=== PATIENT | male | born 1955 | race Caucasian/White ===

== ENCOUNTER → 2020-10-10 13:22 | Outpatient (BNVA) | payer MEDICARE, SELFPAY | PROVIDERS: PCP Internal Medicine; Visit Provider Urology | DX: N52.9 Male erectile dysfunction, unspecified (principal) | CPT/HCPCS: 99212; Q3014 ==

== ENCOUNTER 2020-11-20 17:47 | Emergency (ER) | payer MEDICARE, SELFPAY ==
--- NOTE | ~2020-11-20 | CT_ITS ---
EXAMINATION: CT HEAD WITHOUT CONTRAST CT CERVICAL SPINE WITHOUT CONTRAST CLINICAL INFORMATION: Fall COMPARISON: MRI 03/23/2018 TECHNIQUE: A noncontrast CT of the head and a noncontrast CT of the cervical spine with sagittal and coronal reformats. This CT examination was performed using dose optimization techniques as appropriate, variously including the following: *Automated exposure control *Adjustment of mA and/or kV according to patient size (this includes techniques or standardized protocols for targeted exams where dose is matched to indication/reason for exam; i.e. extremities or head) *Use of iterative reconstruction technique DLP: 1441 FINDINGS: No intra-axial or extra-axial hemorrhage. No acute territorial infarct. Ventricles and sulci appear normal. Preservation of mott-white matter differentiation. No mass, mass effect, or midline shift. No fracture. The mastoid air cells and visualized paranasal sinuses are clear. Normal alignment of the cervical spine. No fracture. No prevertebral soft tissue swelling. 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 Mild to moderate degenerative disc disease at C4-C5 and C5-C6. Associated uncovertebral hypertrophy narrows the neural foramen bilaterally. CT/CT head/brain wo con IMPRESSION: No acute intracranial abnormality. No cervical spine fracture or traumatic subluxation.
--- NOTE | ~2020-11-20 | CT_ITS ---
EXAMINATION: CT HEAD WITHOUT CONTRAST CT CERVICAL SPINE WITHOUT CONTRAST CLINICAL INFORMATION: Fall COMPARISON: MRI 03/23/2018 TECHNIQUE: A noncontrast CT of the head and a noncontrast CT of the cervical spine with sagittal and coronal reformats. This CT examination was performed using dose optimization techniques as appropriate, variously including the following: *Automated exposure control *Adjustment of mA and/or kV according to patient size (this includes techniques or standardized protocols for targeted exams where dose is matched to indication/reason for exam; i.e. extremities or head) *Use of iterative reconstruction technique DLP: 1441 FINDINGS: No intra-axial or extra-axial hemorrhage. No acute territorial infarct. Ventricles and sulci appear normal. Preservation of mott-white matter differentiation. No mass, mass effect, or midline shift. No fracture. The mastoid air cells and visualized paranasal sinuses are clear. Normal alignment of the cervical spine. No fracture. No prevertebral soft tissue swelling. 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 Mild to moderate degenerative disc disease at C4-C5 and C5-C6. Associated uncovertebral hypertrophy narrows the neural foramen bilaterally. CT/CT cervical spine wo con IMPRESSION: No acute intracranial abnormality. No cervical spine fracture or traumatic subluxation.
--- NOTE | ~2020-11-20 | CT_ITS ---
EXAMINATION: CT PELVIS WITHOUT CONTRAST CLINICAL INFORMATION: Question of hip fracture COMPARISON: None TECHNIQUE: Helical scanning was performed with submillimeter collimation through the pelvis. Sagittal and coronal multiplanar 2-D reconstructions were obtained. This CT examination was performed using dose optimization techniques as appropriate, variously including the following: *Automated exposure control *Adjustment of mA and/or kV according to patient size (this includes techniques or standardized protocols for targeted exams where dose is matched to indication/reason for exam; i.e. extremities or head) *Use of iterative reconstruction technique DLP: 1141 mGy-cm FINDINGS: PELVIS: Calcific atherosclerotic changes present in the iliac vessels. An abnormal pelvic mass or ascites is not seen. Prostate and seminal vesicles are unremarkable. The visualized bowel appears normal. No retroperitoneal lymphadenopathy is seen. There are small inguinal hernia seen containing only fat. OSSEOUS STRUCTURES: The bony pelvis and hips appear normal without fracture. Degenerative changes are present at L5-S1 with vacuum phenomena. No bony destructive lesions are seen. CT/CT pelvis wo con IMPRESSION: No hip fractures are seen.
[2020-11-20 18:27] VITALS: BP 173/89; PULSE 78; RESP 18; TEMP 36.6; O2SAT 98; BMI 26.6
--- NOTE | 2020-11-20 18:56 | ED.WEAKNESS ---
HPI - Weakness General Chief complaint: Weakness Stated complaint: leg weakness Time Seen by Provider: 11/20/20 18:47 History of Present Illness HPI Narrative: Patient is a 65-year-old male with a history of Parkinson's there has been no change in patient's medications. Patient fell on . Hit his head. Patient not on blood thinners. Complaining of generalized malaise. Bilateral lower extremity weakness. No fever no chills. No coughing or congestion or upper respiratory symptoms. No diaphoresis. Patient is from home. Has a neurologist at [facility]. Related Data Home Medications Medication Instructions Recorded Confirmed aspirin 81 mg tablet,delayed 81 mg PO DAILY 10/10/20 release escitalopram oxalate 10 mg tablet 10 mg PO DAILY 10/10/20 mirtazapine 7.5 mg tablet 7.5 mg PO BEDTIME PRN 10/10/20 pramipexole 0.125 mg tablet 0.125 mg PO TID 10/10/20 rotigotine 1 mg/24 hour 1 patch TOPICAL DAILY 10/10/20 transdermal 24 hour patch rotigotine 2 mg/24 hour 1 patch TOPICAL BEDTIME 10/10/20 transdermal 24 hour patch rotigotine 3 mg/24 hour 1 patch TOPICAL DAILY 10/10/20 transdermal 24 hour patch terazosin 5 mg capsule 5 mg PO BEDTIME 10/10/20 Previous Rx's Medication Instructions Recorded sildenafil 100 mg tablet 100 mg PO DAILY PRN 30 Days #30 tab 10/10/20 Allergies Allergy/AdvReac Type Severity Reaction Status Date / Time amoxicillin [AMOXICILLIN] Allergy Intermediate GI UPSET Unverified 05/11/20 16:26 propoxyphene [From DARVON] AdvReac Intermediate GI UPSET Unverified 05/11/20 16:26 Darvon Allergy Unknown Uncoded 04/07/20 00:00 Review of Systems Review of Systems: Constitutional: No Weight loss, No Fever, No Chills, No Night Sweats, No Fatigue, No Malaise ENT/Mouth: No Hearing loss, No Ear Pain, No Nasal Congestion, No Sinus Pain, No Hoarseness, No sore throat, No Rhinorrhea, No Swallowing Difficulty Eyes: No Eye Pain, No Swelling, No Redness, No Foreign Body, No Discharge, No Vision Changes Cardiovascular: No Chest Pain, No SOB, No Dyspnea on Exertion, No Orthopnea, No Edema, No Palpitations Respiratory: No Cough, No Sputum, No Wheezing, No Smoke Exposure, No Dyspnea Gastrointestinal: No Nausea, No Vomiting, No Diarrhea, No Constipation, No abdominal Pain, No Hematochezia, No Melena Genitourinary: no irregular bleeding, No Dysuria, No Urinary Frequency, No Hematuria, No Urinary Incontinence, No Urgency, No Flank Pain, No Urinary Flow Changes, No Hesitancy Musculoskeletal: No joint pain, No Myalgias, No Joint Swelling Skin: No Skin Lesions, No rash Neuro: Positive generalized weakness, No Numbness, No Paresthesias, No Loss of Consciousness, No Dizziness, No Headache Psych: No Anxiety/Panic, No Depression, No SI/HI/AH/VH, No Social Issues, Heme/Lymph: No Bruising, No Bleeding,No Lymphadenopathy Endocrine: No Polyuria, No Polydipsia, No Temperature Intolerance [facility] Past Medical History Attestation statement: The following information was validated with the patient. Social History Social History Advance Directives: No Advance Directives Information Provided: Yes Physical Exam Vital Signs: Vital Signs: Last Vital Signs Temp 98.9 F 11/21/20 00:00 Pulse 64 11/21/20 00:00 Resp 16 11/21/20 00:00 BP 156/100 H 11/21/20 00:00 Pulse Ox 99 11/21/20 00:00 Body Mass Index 26.6 Appearance: Alert. Oriented X3. No acute distress. Eyes: Pupils equal, round and reactive to light. ENT: Pharynx normal. Neck: Normal inspection. Neck supple. No lymph nodes noted. No crepitus CVS: Normal heart rate and rhythm. Pulses normal. Normal S1 and S2 Respiratory: No respiratory distress. Breath sounds normal. No Wheezing. No rales Abdomen: Soft and nontender. No rigidity. No distention. good BS x4 Skin: Skin warm and dry. Normal skin color. Normal skin turgor. Extremities: No lower extremity edema. Moving both lower extremity slowly. Neuro: Oriented X 3. No motor deficit. No sensory deficit. Moving all extermities. No slurred speech MDM - Weakness MDM Narrative Medical decision making narrative: Patient well. No acute distress CT scan of the head was negative for any acute evidence of fracture bleed. CT of the pelvis negative for any evidence of fracture hip. Patient's electrolytes are otherwise unremarkable. Discussed with patient's son. Will take patient home. Will have patient follow up closely with Neurology on an outpatient basis. Ensured compliance with his Parkinson's medication. Patient will stay with his son michael. Currently in stable condition. Medical Records Attestation: I reviewed the patient's medical records. Lab Data Attestation: I reviewed the patient's lab results. Result diagrams: 11/20/20 21:30 11/20/20 21:30 Labs: Lab Results 11/20/20 11/20/20 11/20/20 Range/Units 20:59 21:30 21:30 WBC 5.4 (4.8-10.8) X10*3/uL RBC 4.35 L (4.60-5.80) X10*6/uL Hgb 13.9 L (14.0-18.0) g/dl Hct 40.6 L (42-52) % MCV 93.3 (80-98) fL MCH 32.0 (27.0-33.0) pg MCHC 34.2 (31.0-36.0) g/dl RDW 13.4 (11.0-16.0) % Plt Count 175 (160-400) X10*3/uL MPV 9.6 (9.4-12.4) fL Immature Gran % (Auto) 0.2 (0.0-0.4) % Neut % (Auto) 62.9 (45-73) % Lymph % (Auto) 24.0 (20-40) % [place] % (Auto) 9.7 (2-11) % Eos % (Auto) 2.6 (0-4) % Baso % (Auto) 0.6 (0-2) % Lymph # (Auto) 1.3 (1.2-4.9) X10*3/uL [place] # (Auto) 0.5 (0.1-1.2) X10*3/uL Eos # (Auto) 0.1 (0.0-0.4) X10*3/uL Baso # (Auto) 0.0 (0.0-0.2) X10*3/uL Abs Immat Gran (auto) 0.01 (0.00-0.03) X10*3/uL Absolute Neuts (auto) 3.4 (2.0-8.3) X10*3/uL Absolute Nucleated RBC 0.000 (0.0-0.012) X10*3/uL Nucleated RBC % (auto) 0.0 (0.0-0.2) /100WBC PT 12.5 (10.8-13.0) SEC INR 1.1 (0.9-1.1) Sodium (135-145) mmol/L Potassium (3.3-5.1) mmol/L Chloride (96-108) mmol/L Carbon Dioxide (22-29) mmol/L Anion Gap (12-20) BUN (9-16) mg/dL Creatinine (0.5-1.4) mg/dL Estim Creat Clear Calc Estimated GFR Random Glucose (60-115) mg/dL Calcium (8.4-10.2) mg/dL Total Bilirubin (0.0-1.0) mg/dL Direct Bilirubin (0.0-0.5) mg/dL AST (5-37) U/L ALT (0-40) U/L Alkaline Phosphatase (39-117) U/L Total Protein (6.5-8.0) g/dL Albumin (3.5-5.0) g/dL TSH (0.32-4.0) uIU/mL Urine Color YELLOW Urine Appearance CLEAR Urine pH 7.0 (5.0-8.0) Ur Specific Industry 1.020 (1.005-1.025) Urine Protein NEG (NEG-TRACE) MG/DL Urine Glucose (UA) NEG (NEG) MG/DL Urine Ketones NEG (NEG) MG/DL Urine Blood NEG (NEG) Urine Nitrite NEG (NEG) Ur Leukocyte Esterase NEG (NEG) 11/20/20 Range/Units 21:30 WBC (4.8-10.8) X10*3/uL RBC (4.60-5.80) X10*6/uL Hgb (14.0-18.0) g/dl Hct (42-52) % MCV (80-98) fL MCH (27.0-33.0) pg MCHC (31.0-36.0) g/dl RDW (11.0-16.0) % Plt Count (160-400) X10*3/uL MPV (9.4-12.4) fL Immature Gran % (Auto) (0.0-0.4) % Neut % (Auto) (45-73) % Lymph % (Auto) (20-40) % [place] % (Auto) (2-11) % Eos % (Auto) (0-4) % Baso % (Auto) (0-2) % Lymph # (Auto) (1.2-4.9) X10*3/uL [place] # (Auto) (0.1-1.2) X10*3/uL Eos # (Auto) (0.0-0.4) X10*3/uL Baso # (Auto) (0.0-0.2) X10*3/uL Abs Immat Gran (auto) (0.00-0.03) X10*3/uL Absolute Neuts (auto) (2.0-8.3) X10*3/uL Absolute Nucleated RBC (0.0-0.012) X10*3/uL Nucleated RBC % (auto) (0.0-0.2) /100WBC PT (10.8-13.0) SEC INR (0.9-1.1) Sodium 142 (135-145) mmol/L Potassium 4.0 (3.3-5.1) mmol/L Chloride 109 H (96-108) mmol/L Carbon Dioxide 23 (22-29) mmol/L Anion Gap 14 (12-20) BUN 22 H (9-16) mg/dL Creatinine 0.84 (0.5-1.4) mg/dL Estim Creat Clear Calc 88.1 Estimated GFR > 60 Random Glucose 101 (60-115) mg/dL Calcium 8.3 L (8.4-10.2) mg/dL Total Bilirubin 0.5 (0.0-1.0) mg/dL Direct Bilirubin 0.2 (0.0-0.5) mg/dL AST 19 (5-37) U/L ALT 31 (0-40) U/L Alkaline Phosphatase 62 (39-117) U/L Total Protein 5.8 L (6.5-8.0) g/dL Albumin 3.9 (3.5-5.0) g/dL TSH 1.10 (0.32-4.0) uIU/mL Urine Color Urine Appearance Urine pH (5.0-8.0) Ur Specific Industry (1.005-1.025) Urine Protein (NEG-TRACE) MG/DL Urine Glucose (UA) (NEG) MG/DL Urine Ketones (NEG) MG/DL Urine Blood (NEG) Urine Nitrite (NEG) Ur Leukocyte Esterase (NEG) Discharge Plan Discharge Clinical Impression: Parkinson disease Patient Disposition: Home, Self-Care Instructions: Parkinson Disease (ED) Prescriptions: No Action mirtazapine 7.5 mg tablet 7.5 mg PO BEDTIME PRNRF: 0 Neupro 1 mg/24 hour patch 24 hour 1 patch topical DAILY RF: 0 Neupro 2 mg/24 hour patch 24 hour 1 patch topical BEDTIME RF: 0 escitalopram oxalate 10 mg tablet 10 mg PO DAILY RF: 0 pramipexole 0.125 mg tablet 0.125 mg PO TID RF: 0 aspirin 81 mg tablet,delayed release (DR/EC) 81 mg PO DAILY RF: 0 Neupro 3 mg/24 hour patch 24 hour 1 patch topical DAILY RF: 0 terazosin 5 mg capsule 5 mg PO BEDTIME RF: 0 sildenafil 100 mg tablet 100 mg PO DAILY PRN (Reason: sexual activity) 30 Days Qty: 30 RF: 1 Referrals: Chet Keith MD [Primary Care Provider] - 2 days
[2020-11-20 21:25] LABS: Glucose Urine UA NEG (NEG); Leukocyte Esterase Urine NEG (NEG); Nitrite Urine NEG (NEG); Urine Blood NEG (NEG); Urine Ketones NEG (NEG); Urine Protein NEG (NEG-TRACE)
[2020-11-20 21:27] LABS: Appearance Urine CLEAR; Color Urine YELLOW
--- NOTE | 2020-11-20 21:31 | PC.NURSE ---
20g IV access established in right forearm. labs drawn and sent for analysis. aware of delayed lab draw/results. Pt ambulated with poor shuffling slow gait with this RN. urine specimen previously collected and sent for analysis. Awaiting results. Will continue to monitor.
[2020-11-20 21:34] LABS: MANUAL DIFF FLAG NO
--- NOTE | 2020-11-20 21:34 | PC.NURSE ---
Urine specimen negative.
[2020-11-20 21:38] LABS: Basophils Percent Auto 0.6 % (0-2); Eosinophils Absolute Auto 0.1 X10*3/uL (0.0-0.4); Eosinophils Percent Auto 2.6 % (0-4); Hematocrit 40.6 % (42-52); Hemoglobin 13.9 g/dl (14.0-18.0); Imm Gran Abs Auto 0.01 X10*3/uL (0.00-0.03); Imm Gran Pct Auto 0.2 % (0.0-0.4); Lymphocytes Absolute Auto 1.3 X10*3/uL (1.2-4.9); Mean Corpuscular HGB Conc 34.2 g/dl (31.0-36.0); Mean Corpuscular Volume 93.3 fL (80-98); Mean Platelet Volume 9.6 fL (9.4-12.4); Monocytes Absolute Auto 0.5 X10*3/uL (0.1-1.2); Monocytes Percent Auto 9.7 % (2-11); Neutrophils Absolute Auto 3.4 X10*3/uL (2.0-8.3); Neutrophils Percent Auto 62.9 % (45-73); Platelet Count 175 X10*3/uL (160-400); Red Blood Count 4.35 X10*6/uL (4.60-5.80); Red Cell Distribution Width 13.4 % (11.0-16.0); White Blood Count 5.4 X10*3/uL (4.8-10.8)
[2020-11-20 21:43] LABS: INTERNATIONAL NORM RATIO 1.1 (0.9-1.1); Prothrombin Time 12.5 SEC (10.8-13.0)
[2020-11-20 22:02] LABS: Alanine Aminotransferase 31 U/L (0-40); Albumin Level 3.9 g/dL (3.5-5.0); Alkaline Phosphatase 62 U/L (39-117); Anion Gap 14 (12-20); Aspartate Amino Transferase 19 U/L (5-37); Bilirubin Direct 0.2 mg/dL (0.0-0.5); Bilirubin Total 0.5 mg/dL (0.0-1.0); Blood Urea Nitrogen 22 mg/dL (9-16); Calcium 8.3 mg/dL (8.4-10.2); Carbon Dioxide 23 mmol/L (22-29); Chloride 109 mmol/L (96-108); Creatinine Clr Calc Pharmacy 88.1; Estimated Glomerular Filt Rate > 60; Glucose Random 101 mg/dL (60-115); Sodium 142 mmol/L (135-145); Total Protein 5.8 g/dL (6.5-8.0)
--- NOTE | 2020-11-20 23:05 | PC.NURSE ---
Pt called over this RN, voicing that he is upset and anxious about being in the hospital. Pt demanding to have IV access removed, and demanded that we call his son Jesus ([phone]) and Miguelina ([phone]). Unable to reach either person.
--- NOTE | 2020-11-20 23:09 | PC.NURSE ---
Pt's son Jesus just called and spoke with this RN and over the phone. Jesus aware that patient is requesting to leave against medical advice, but Jesus states but I don't want him to leave the hospital . encouraged that the patient have a follow up appointment with his neurologist after discharge and have someone assisting him at home. Aware that labs and imaging are unremarkable.
[2020-11-21] VITALS: BP 156/100; PULSE 64; RESP 16; TEMP 37.2; O2SAT 99
== END 2020-11-21 00:31 | disposition home or self-care (01) ==
PROVIDERS: Emergency Provider Emergency Medicine Emergency Medical Services; PCP Family Medicine
DX: G20 Parkinson's disease (principal); R53.1 Weakness; R53.81 Other malaise; Z91.81 History of falling; Z79.899 Other long term (current) drug therapy; Z79.82 Long term (current) use of aspirin
CPT/HCPCS: 36415; 70450; 72125; 72192; 80048; 80076; 81003; 84443; 85025; 85610; 99283; 99284

== ENCOUNTER 2021-03-12 04:31 | Day surgery (SDC) | payer MEDICARE, SELFPAY ==
[2021-03-12] VITALS (19 sets, daily range): BP systolic 120–195; BP diastolic 67–99; PULSE 73–103; RESP 12–20; TEMP 36.2–37; O2SAT 91–98; BMI 24.3; BMI 25.9; BMI 25.6
--- NOTE | ~2021-03-12 | XR_ITS ---
EXAMINATION: XR SHOULDER, RIGHT CLINICAL INFORMATION: Post reduction COMPARISON: Earlier same date TECHNIQUE: One view of the right shoulder. XR/XR shoulder RT 1V FINDINGS/IMPRESSION: Persistent anterior dislocation of the humeral head with respect to the glenoid. Acromioclavicular joint unremarkable.
--- NOTE | ~2021-03-12 | FL_ITS ---
EXAMINATION: XR FLUOROSCOPY WITH IMAGES CLINICAL INFORMATION: Right shoulder dislocation. COMPARISON: Right shoulder 03/12/2021. TECHNIQUE: Fluoroscopy performed by Dr. Capo Burch Fluoroscopy time: 0.0 minutes DAP: 0.0158 mGycm2 Images: 1 FINDINGS: Fluoroscopy was provided to the referring physician for reduction of right shoulder dislocation. On the single image obtained, there is normal alignment of the glenohumeral joint post reduction. No fracture seen. FL/FL guidance in OR IMPRESSION: Fluoroscopy was provided to the referring physician during reduction of anteriorly dislocated right shoulder joint. On the single image obtained of the right shoulder, there is normal glenohumeral alignment with no acute fracture seen.
--- NOTE | ~2021-03-12 | XR_ITS ---
EXAMINATION: XR SHOULDER, RIGHT CLINICAL INFORMATION: Fall, pain COMPARISON: None TECHNIQUE: Three views of the right shoulder. FINDINGS: There is anterior dislocation of the humeral head relative to the glenoid fossa. No acute fracture is seen. The acromioclavicular joint is intact. XR/XR shoulder RT min 2V IMPRESSION: Anterior glenohumeral dislocation.
[2021-03-12] MEDS: Ketorolac Tromethamine 15 MG/ML VIAL IVPUSH (06:09)
[2021-03-12] MEDS: LORazepam 2 MG/ML VIAL 0.25 MG IVPUSH (06:10)
--- NOTE | 2021-03-12 06:35 | PC.NURSE ---
Right shoulder anterior dislocation. and this RN at bedside attempting to reset shoulder. Medicated prior to procedure for comfort with Ativan 0.25mg and Toradol 15mg. However, first attempt not successful with traction, will re-attempt to set shoulder after medicating with Morphine 1mg. Pt tolerated procedure well.
[2021-03-12] MEDS: Morphine Sulfate 2 MG/ML CARTRIDGE 1 MG IVPUSH (06:42)
--- NOTE | 2021-03-12 07:35 | PC.NURSE ---
Doctor at bedside for right shoulder reduction
[2021-03-12] MEDS: Etomidate 20 MG/10 ML VIAL 5 MG IVPUSH ×2 (07:39→08:32)
--- NOTE | 2021-03-12 08:34 | ED_ITS ---
HPI - Fall General Chief Complaint: Fall Stated Complaint: fall Time Seen by Provider: 03/12/21 06:01 Source: patient Mode of arrival: EMS History of Present Illness HPI Narrative: 65-year-old male with history Parkinson's presents with [facility] anical fall resulting in falling against the counter and subsequent right upper extremity pain without head strike or loss of consciousness. Related Data Home Medications Medication Instructions Recorded Confirmed aspirin 81 mg tablet,delayed 81 mg PO DAILY 10/10/20 release escitalopram oxalate 10 mg tablet 10 mg PO DAILY 10/10/20 mirtazapine 7.5 mg tablet 7.5 mg PO BEDTIME PRN 10/10/20 pramipexole 0.125 mg tablet 0.125 mg PO TID 10/10/20 rotigotine 1 mg/24 hour 1 patch TOPICAL DAILY 10/10/20 transdermal 24 hour patch rotigotine 2 mg/24 hour 1 patch TOPICAL BEDTIME 10/10/20 transdermal 24 hour patch rotigotine 3 mg/24 hour 1 patch TOPICAL DAILY 10/10/20 transdermal 24 hour patch terazosin 5 mg capsule 5 mg PO BEDTIME 10/10/20 Previous Rx's Medication Instructions Recorded sildenafil 100 mg tablet 100 mg PO DAILY PRN 30 Days #30 tab 10/10/20 Allergies Allergy/AdvReac Type Severity Reaction Status Date / Time amoxicillin [AMOXICILLIN] Allergy Intermediate GI UPSET Verified 03/12/21 05:21 propoxyphene [From DARVON] AdvReac Intermediate GI UPSET Verified 03/12/21 05:21 Darvon Allergy Unknown Gastrointestinal Uncoded 03/12/21 05:21 Upset Review of Systems Review of Systems: Pertinent positives and negatives as stated in HPI 10 point review of systems is otherwise negative. [facility] Past Medical History Source: nursing notes reviewed Medical History Parkinson disease Social History Social History Advance Directives: No Advance Directives Information Provided: No Physical Exam Vital Signs: Vital Signs: Last Vital Signs Pulse 95 03/12/21 08:55 Resp 12 03/12/21 08:55 BP 179/99 H 03/12/21 08:55 Pulse Ox 94 03/12/21 08:24 Body Mass Index 25.9 VITAL SIGNS: Reviewed. GENERAL: Well developed, well nourished, in no acute distress. HEAD: Normocephalic/atraumatic EYES: PERRLA, EOMI OROPHARYNX: no oral lesions noted, posterior pharynx clear NECK: Supple, no adenopathy LUNGS: Normal breath sounds. No adventitious sounds or accessory muscle use. SpO2<94> CARDIOVASCULAR: Regular rate and rhythm without noted murmurs ABDOMEN: Soft, non-tender, non-distended with bowel sounds. RIGHT UPPER EXTREMITY: Capillary refill less than 3 seconds, sensation is intact, palpable ulnar/radial pulse, patient currently in splint but no obvious deformities appreciated. SKIN: Inspection of the skin reveals no rashes NEUROLOGIC: Alert and oriented x 4. Strength and sensation to light touch were grossly intact x 4, tremulous Course Course Course Narrative: 65-year-old male with history and clinical presentation consistent with mechanical fall resulting on review of x-rays anterior dislocated right shoulder. Multiple attempts made to reduce the shoulder to include procedural sedation, but unsuccessful. I discussed the case with orthopedics and they are agreeable for shoulder reduction in the OR. I discussed the case with the patient and informed him of the plan, and he acknowledges understanding. 0950: I called and spoke with the patient's son, Eugene Tinoco, who expresses concerns regarding his father's mobility after the shoulder reduction given his already compromised mobility due to his Parkinson's. He is requesting consideration for short-term rehab. I discussed with the patient and he is agreeable for short-term rehab at this time. Consult for physical therapy and case management were placed. Signed out to Dr Stoll. Reevaluation(s) Reevaluation #1: Patient placed in physician observation because the patient needed more time for shoulder reduction, physical therapy and case management evaluation.. At the time observation was started the patient's vital signs were stable, patient is alert and oriented, neuro: Nonfocal, CV RRR, lungs clear Time: 10:09 Discharge Plan Discharge Clinical Impression: Anterior dislocation of right shoulder, Parkinson's disease Prescriptions: No Action mirtazapine 7.5 mg tablet 7.5 mg PO BEDTIME PRNRF: 0 Neupro 1 mg/24 hour patch 24 hour 1 patch topical DAILY RF: 0 Neupro 2 mg/24 hour patch 24 hour 1 patch topical BEDTIME RF: 0 escitalopram oxalate 10 mg tablet 10 mg PO DAILY RF: 0 pramipexole 0.125 mg tablet 0.125 mg PO TID RF: 0 aspirin 81 mg tablet,delayed release (DR/EC) 81 mg PO DAILY RF: 0 Neupro 3 mg/24 hour patch 24 hour 1 patch topical DAILY RF: 0 terazosin 5 mg capsule 5 mg PO BEDTIME RF: 0 sildenafil 100 mg tablet 100 mg PO DAILY PRN (Reason: sexual activity) 30 Days Qty: 30 RF: 1
--- NOTE | 2021-03-12 08:50 | PC.NURSE ---
Orthopedic PA at bedside talking with patient
--- NOTE | 2021-03-12 09:03 | P.HPOP_ITS ---
History of Present Illness History of Present Illness Date of Service: 03/12/21 Chief complaint: fall Narrative: Sd Tinoco is a 65 year old male presented to the ED this morning after sustaining a fall in his kitchen. He states that due to his Parkinson's disease he has an unsteady gait. He tripped and landed with his right arm onto the kitchen counter top. He felt immediate pain and difficulty moving the right upper extremity. He presented to the ED where x-rays were obtained was found to have an anterior dislocation. The ED attempted to reduce multiple times without success. Orthopedics was then consulted for further evaluation and treatment. Review of Systems Review of Systems: Yes all other systems are reviewed and are negative PMFSH Past Medical History Medical History Parkinson disease Social History Social History Advance Directives: No Advance Directives Information Provided: No Meds Allergies Allergy/AdvReac Type Severity Reaction Status Date / Time amoxicillin [AMOXICILLIN] Allergy Intermediate GI UPSET Verified 03/12/21 05:21 propoxyphene [From DARVON] AdvReac Intermediate GI UPSET Verified 03/12/21 05:21 Darvon Allergy Unknown Gastrointestinal Uncoded 03/12/21 05:21 Upset Home Medications Medication Instructions Recorded Confirmed Last Taken Type aspirin 81 mg tablet,delayed 81 mg PO DAILY 10/10/20 Unknown History release escitalopram oxalate 10 mg tablet 10 mg PO DAILY 10/10/20 Unknown History mirtazapine 7.5 mg tablet 7.5 mg PO BEDTIME PRN 10/10/20 Unknown History pramipexole 0.125 mg tablet 0.125 mg PO TID 10/10/20 Unknown History rotigotine 1 mg/24 hour 1 patch TOPICAL DAILY 10/10/20 Unknown History transdermal 24 hour patch rotigotine 2 mg/24 hour 1 patch TOPICAL BEDTIME 10/10/20 Unknown History transdermal 24 hour patch rotigotine 3 mg/24 hour 1 patch TOPICAL DAILY 10/10/20 Unknown History transdermal 24 hour patch terazosin 5 mg capsule 5 mg PO BEDTIME 10/10/20 Unknown History Physical Exam Vital Signs: Vital Signs: Last Vital Signs Pulse 95 03/12/21 08:55 Resp 12 03/12/21 08:55 BP 179/99 H 03/12/21 08:55 Pulse Ox 94 03/12/21 08:24 Body Mass Index 25.9 Const: General: cooperative and no acute distress Orientation/consciousness: patient oriented x3 HENMT: Head: Yes normal to inspection, Yes normocephalic and Yes atraumatic Eyes: General: appearance normal, both eyes and all related structures Neck: Neck: Yes normal visual inspection and Yes no lymphadenopathy Resp: Effort & Inspection: normal respiratory effort and able to speak in complete sentences Cardio: Rate: regular rate Peripheral pulses: Peripheral pulses 2+ thro ughout GI: Inspection: Yes normal to inspection Palpation (GI): Soft to palpation Skin: General skin exam: no rashes or lesions noted Lesions: no lesions Rashes: no rashes Neuro: General: patient oriented x3 Extrem: Other: Right upper extremity: Unable to actively move his right shoulder. Patient is able to flex and extend the right elbow without difficulties. He is able to demonstrate finger flexion, extension, adduction, abduction, thumbs up, and finger cross without difficulty. Sensation is intact. Radial pulse intact. Psych: Mental Status: mental status grossly normal Results Labs Labs: All other labs normal. Assessment and Plan (1) Anterior dislocation of right shoulder: Status: Acute Mr. Tinoco is a 65-year-old male who presents to the emergency department after sustaining a right shoulder anterior dislocation. Multiple attempts in the ED is for reduction were unsuccessful. I discussed the case with Dr. Henson and explained the extent of the injury to the patient and options available which include a closed reduction under anesthesia. I explained the procedure in detail along with the length of recovery and rehab course. I explained the risk, benefits and alternatives. Risk including, but not limited to nerve/tissue damage to surrounding areas. I answered all their questions and with their understanding they have consented to move forward with a closed reduction of right shoulder dislocation. Quality Stroke Does the patient have a stroke diagnosis?: No VTE Prior VTE?: No VTE Risk Level:: Surgical - low VTE Device Contraindication: Treatment Not Indicated VTE Drug Contraindication: Treatment Not Indicated Procedures Date of Service Date of Service: 03/12/21
--- NOTE | 2021-03-12 09:55 | PC.NURSE ---
Report given to OR nurse.
[2021-03-12 11:13] LABS: MANUAL DIFF FLAG NO
[2021-03-12 11:16] LABS: Basophils Percent Auto 0.1 % (0-2); Hematocrit 40.1 % (42-52); Hemoglobin 13.6 g/dl (14.0-18.0); Imm Gran Abs Auto 0.03 X10*3/uL (0.00-0.03); Imm Gran Pct Auto 0.3 % (0.0-0.4); Lymphocytes Absolute Auto 0.8 X10*3/uL (1.2-4.9); Lymphocytes Percent Auto 8.6 % (20-40); Mean Corpuscular HGB Conc 33.9 g/dl (31.0-36.0); Mean Corpuscular Hemoglobin 31.5 pg (27.0-33.0); Mean Corpuscular Volume 92.8 fL (80-98); Mean Platelet Volume 9.9 fL (9.4-12.4); Monocytes Absolute Auto 0.4 X10*3/uL (0.1-1.2); Monocytes Percent Auto 4.5 % (2-11); Neutrophils Absolute Auto 8.4 X10*3/uL (2.0-8.3); Neutrophils Percent Auto 86.5 % (45-73); Platelet Count 163 X10*3/uL (160-400); Red Blood Count 4.32 X10*6/uL (4.60-5.80); Red Cell Distribution Width 13.4 % (11.0-16.0); White Blood Count 9.7 X10*3/uL (4.8-10.8)
[2021-03-12 11:22] LABS: INTERNATIONAL NORM RATIO 1.2 (0.9-1.1); Prothrombin Time 13.1 SEC (9.9-13.0)
[2021-03-12 11:29] LABS: COVID-19 Test Negative (Negative)
--- NOTE | 2021-03-12 11:40 | PC.NURSE ---
Richy from OR here to transpor pt to the operating room. Pt is alert and in no distress
--- NOTE | 2021-03-12 11:56 | MHC.CM.ED ---
Received notificaiton from Dr Moreno that patient may not be safe to go home d/t dislocated shoulder. Physical therapy eval completed. Short term rehab is recommended. Received notification that patient's son, Eugene had some concerns about patient discharging home. Attempted to reach Eugene via telephone at [phone]. Eugene is currently in patient's room. T/W will be in patient's room to assess for discharge needs.
[2021-03-12 12:00] LABS: Alanine Aminotransferase 22 U/L (0-40); Albumin Level 3.8 g/dL (3.5-5.0); Alkaline Phosphatase 62 U/L (39-117); Anion Gap 10 (12-20); Aspartate Amino Transferase 18 U/L (5-37); Bilirubin Total 0.5 mg/dL (0.0-1.0); Blood Urea Nitrogen 15 mg/dL (9-16); Calcium 8.3 mg/dL (8.4-10.2); Carbon Dioxide 23 mmol/L (22-29); Chloride 109 mmol/L (96-108); Estimated Glomerular Filt Rate > 60; Glucose Random 118 mg/dL (60-115); Sodium 138 mmol/L (135-145); Total Protein 5.7 g/dL (6.5-8.0)
--- NOTE | 2021-03-12 12:08 | HO.ANESPROP2 ---
HPI - Anesthesia Eval Consult details Narrative: shoulder dislocation right PMFSH Active Problems Active Problems: All Active Problems (Updated 03/12/21 @ 10:20 by Jenna Moreno MD) Parkinson's disease (Acute) Anterior dislocation of right shoulder (Acute) BPH w urinary obs/LUTS (Acute) Erectile dysfunction (Acute) Past Medical History Medical History Parkinson disease Social History Social History Patient Tobacco Use Status: Never used Tobacco Use of substances other than those prescribed or required for medical reasons: No Are you DNR?: No Advance Directives: No Advance Directives Information Provided: No Meds Allergies Allergy/AdvReac Type Severity Reaction Status Date / Time amoxicillin [AMOXICILLIN] Allergy Intermediate GI UPSET Verified 03/12/21 05:21 propoxyphene [From DARVON] AdvReac Intermediate GI UPSET Verified 03/12/21 05:21 Darvon Allergy Unknown Gastrointestinal Uncoded 03/12/21 05:21 Upset Home Medications Medication Instructions Recorded Confirmed Last Taken Type aspirin 81 mg tablet,delayed 81 mg PO DAILY 10/10/20 Unknown History release escitalopram oxalate 10 mg tablet 10 mg PO DAILY 10/10/20 Unknown History mirtazapine 7.5 mg tablet 7.5 mg PO BEDTIME PRN 10/10/20 Unknown History pramipexole 0.125 mg tablet 0.125 mg PO TID 10/10/20 Unknown History rotigotine 1 mg/24 hour 1 patch TOPICAL DAILY 10/10/20 Unknown History transdermal 24 hour patch rotigotine 2 mg/24 hour 1 patch TOPICAL BEDTIME 10/10/20 Unknown History transdermal 24 hour patch rotigotine 3 mg/24 hour 1 patch TOPICAL DAILY 10/10/20 Unknown History transdermal 24 hour patch terazosin 5 mg capsule 5 mg PO BEDTIME 10/10/20 Unknown History Exam Exam Date and Time: March 12, 2021 1208 Height,Weight and Vital Signs: Height 5 ft 10 in Weight 81.9 kg Last Vital Signs Temp 98.3 F 03/12/21 11:56 Pulse 95 03/12/21 11:56 Resp 20 03/12/21 11:56 BP 149/82 H 03/12/21 11:56 Pulse Ox 94 03/12/21 11:56 Pertinent Lab Results Pertinent Lab Results: Laboratory Tests 03/12/21 03/12/21 03/12/21 11:03 11:03 11:03 WBC 9.7 RBC 4.32 L Hgb 13.6 L Hct 40.1 L MCV 92.8 MCH 31.5 MCHC 33.9 RDW 13.4 Plt Count 163 MPV 9.9 Immature Gran % (Auto) 0.3 Neut % (Auto) 86.5 H Lymph % (Auto) 8.6 L Henry % (Auto) 4.5 Eos % (Auto) 0.0 Baso % (Auto) 0.1 Lymph # (Auto) 0.8 L Henry # (Auto) 0.4 Eos # (Auto) 0.0 Baso # (Auto) 0.0 Abs Immat Gran (auto) 0.03 Absolute Neuts (auto) 8.4 H Absolute Nucleated RBC 0.000 Nucleated RBC % (auto) 0.0 PT 13.1 H INR 1.2 H Sodium 138 Potassium 4.0 Chloride 109 H Carbon Dioxide 23 Anion Gap 10 L BUN 15 Creatinine 0.85 Estim Creat Clear Calc 87.0 Estimated GFR > 60 Random Glucose 118 H Calcium 8.3 L Total Bilirubin 0.5 AST 18 ALT 22 Alkaline Phosphatase 62 Total Protein 5.7 L Albumin 3.8 COVID-19 (ARCHIE) COVID-19 [employer] Com 03/12/21 11:03 WBC RBC Hgb Hct MCV MCH MCHC RDW Plt Count MPV Immature Gran % (Auto) Neut % (Auto) Lymph % (Auto) Henry % (Auto) Eos % (Auto) Baso % (Auto) Lymph # (Auto) Henry # (Auto) Eos # (Auto) Baso # (Auto) Abs Immat Gran (auto) Absolute Neuts (auto) Absolute Nucleated RBC Nucleated RBC % (auto) PT INR Sodium Potassium Chloride Carbon Dioxide Anion Gap BUN Creatinine Estim Creat Clear Calc Estimated GFR Random Glucose Calcium Total Bilirubin AST ALT Alkaline Phosphatase Total Protein Albumin COVID-19 (ARCHIE) Negative COVID-19 Clin Com See Note Airway Mallampati Class: II TM Dist: >3cm Neck ROM: Full Loose/Missing/Broken Teeth: Yes Heart: rrr+[id number] Lungs: cta b/l Assessment and Plan Assessment Anesthesia Assessment: Anesthesia Plan Discussed, PAT Visit and Chart Reviewed Final Anesthetic Review NPO: Yes ASA Class: III Final Preanesthetic Review: No Changes in Pt Med Stat, Meds/Allgs Chart Reviewed, Consent Obtained/Reviewed and Anes Risks/Benef Reviewed Patient Risk: Intermediate Procedure Risk: Low Assessment/Block/Sedation in SS: Assess/Block/Sedation-SS Anesthetic Plan Anesthetic Plan: MAC: and Agree w/ Assess. and Plan Disposition: Standard PACU
--- NOTE | 2021-03-12 12:27 | MHC.CM.ED ---
Patient is currently in the OR having shoulder reduced. Met with patient's son, Eugene in regards to discharge planning. Patient lives with his girlfriend, is suppsoed to use a cane for mobility and had no services prior to coming to the ER. Patient's girlfriend was recently diagnosed with lung cancer. Patient has a history of Parkinson's and Lewy Body dementia. Patient will be non-compliant with meds and experience increased falls. Physical therapy eval completed. Short term rehab is recommended. Patient has never been to short term rehab. List of facilities provided to Eugene from [facility]. He will decide on 2 facility choices and notify case management. PCP is Dr Keith. Patient has not completed a HCP and will need one for short term rehab. Patient receive the [employer] Covid vaccine in December. Continue to monitor for d/c needs.
--- NOTE | 2021-03-12 12:54 | P.OP_ITS ---
Operative Note Operative Note Date of Service: 03/12/21 Narrative: OPERATIVE PROCEDURE NOTE SURGEON: Dr. Scanlon (Ashley) Instrum CLIENT CARE COORDINATOR: Yudith MUELLER PREOP DIAGNOSIS: Anterior inferior Dislocated right shoulder POSTOP DIAGNOSIS: Same OPERATIVE PROCEDURE: Closed reduction right shoulder CLINICAL NOTE: This gentleman fell and injured his shoulder in his own home. He has a history of Parkinson's. He presented the emergency department where the above diagnosis was made. The fail to be able to reduce the shoulder. Therefore after explaining the risks benefits and alternatives and answering all the questions it was mutually agreed upon to carry out the following procedure OPERATIVE PROCEDURE Under a general anesthetic and on his own stretcher the patient was supine. A time-out was then performed. The patient was identified. Procedure confirmed. Site confirmed. Medical and allergy history is were reviewed. All other items were discussed and agreed upon. Standard technique with counter traction the shoulder was easily reduced in seconds. Fluoroscopy confirmed the reduction. The arm was placed in a sling. We therefore terminated the procedure. Patient was then transferred to the recovery room after anesthetic reversal. He was in good condition. Intraoperatively there were no complications.
--- NOTE | 2021-03-12 13:11 | PC.NURSE ---
SLING TO RUE. + radial pulse. RIGHT HAND FINGERS, W/D/I.
[2021-03-12] MEDS: Acetaminophen 325 MG TABLET 650 MG PO (14:17)
--- NOTE | 2021-03-12 15:19 | MHC.CM.ED ---
Received telephone call from patient's son, Eugene. Facility choices: [facility]) [facility] 2) [facility] [address]. Referrals made via [employer]. Anticipate patient will be admitted under extended stay tonight. Continue to monitor for d/c needs.
[2021-03-13 00:21] VITALS: BP 150/85; PULSE 86; RESP 20; TEMP 36; O2SAT 96
[2021-03-13 04:00] VITALS: BP 144/76; PULSE 84; RESP 20; TEMP 36.1; O2SAT 96
[2021-03-13 07:33] VITALS: BP 122/71; PULSE 78; RESP 17; TEMP 36.4; O2SAT 95
[2021-03-13 08:31] VITALS: BP 122/71; PULSE 78; O2SAT 95
[2021-03-13] MEDS: Escitalopram Oxalate 10 MG TABLET PO (10:03)
[2021-03-13] MEDS: Aspirin Enteric Coated 81 MG TABLET.DR PO (10:03)
--- NOTE | 2021-03-13 11:08 | HO.POSTANES ---
Post Anesthesia Evaluation Post Anesthesia Evaluation Vital Signs: Vital Signs Temp Pulse Resp BP Pulse Ox 03/13/21 08:31 78 122/71 95 03/13/21 07:33 97.5 F 78 17 122/71 95 03/13/21 04:00 96.9 F 84 20 144/76 H 96 03/13/21 00:21 96.8 F 86 20 150/85 H 96 Anesthesia: Monitored Mental Status: Awake Pain Control: Satisfactory Nausea/Vomiting: None Hydration: Adequate Anesthesia-Related Issues: No Anes. Related Issues
[2021-03-13 11:28] VITALS: BP 132/75; PULSE 82; RESP 17; TEMP 36.3; O2SAT 95
--- NOTE | 2021-03-13 12:25 | P.DS_ITS ---
DS: Providers Provider Date of Service: 03/13/21 Primary care physician: Chet Keith MD DS: Diagnosis Discharge Diagnosis (1) Anterior dislocation of right shoulder: Status: Acute DS: Medications Discharge Medications Home Medications: Home Medications Medication Instructions Recorded Confirmed aspirin 81 mg tablet,delayed 81 mg PO DAILY 10/10/20 03/12/21 release escitalopram oxalate 10 mg tablet 10 mg PO DAILY 10/10/20 03/12/21 rotigotine 2 mg/24 hour 1 patch TOPICAL BEDTIME 10/10/20 03/12/21 transdermal 24 hour patch Previous Rx's Medication Instructions Recorded sildenafil 100 mg tablet 100 mg PO DAILY PRN 30 Days #30 tab 10/10/20 DS: Summary Hospital Course Hospital Course: Sd Tinoco is a 65 year old male presented to the ED this morning after sustaining a fall in his kitchen. He states that due to his Parkinson's disease he has an unsteady gait. He tripped and landed with his right arm onto the kitchen counter top. He felt immediate pain and difficulty moving the right upper extremity. He presented to the ED where x-rays were obtained was found to have an anterior dislocation. The ED attempted to reduce multiple times without success. Orthopedics was then consulted for further evaluation and treatment. Mr. Tinoco underweant a successful Closed reduction of the right shoulder under anesthesia. He was transferred to PACU and then to the floor to recover. He was seen by PT/OT for eval and treatment recommendations. Since he lives alone, it was recommended he transfer to [facility] for ongoing PT and ADLs. Time Spent with Patient Time attestation: Total time spent providing and/or coordinating discharge services: Discharge coordination time: Less than 30 minutes Quality: Stroke Does the patient have a stroke diagnosis?: No Physical Exam Vital Signs: Vital Signs: Last Vital Signs Temp 97.3 F 03/13/21 11:28 Pulse 82 03/13/21 11:28 Resp 17 03/13/21 11:28 BP 132/75 03/13/21 11:28 Pulse Ox 95 03/13/21 11:28 Body Mass Index 25.6 Extrem: Other: Right shoulder normal to inspection. Anterior deltoid sensation intact. Wrist and elbow ROM and strength Good. NVI. Discharge Plan Discharge Patient Disposition: [facility] Referrals: Meuse,Ta-Amita, PA-C [Physician Manager Business] - 2 weeks Discharge Medications: No Action Neupro 2 mg/24 hour patch 24 hour 1 patch topical BEDTIME RF: 0 escitalopram oxalate 10 mg tablet 10 mg PO DAILY RF: 0 aspirin 81 mg tablet,delayed release (DR/EC) 81 mg PO DAILY RF: 0 sildenafil 100 mg tablet 100 mg PO DAILY PRN (Reason: sexual activity) 30 Days Qty: 30 RF: 1 Discharge Orders: Discharge Order (Routine); Ordered 03/13/21 Ordered By: Yudith Ruelas Activity Restrictions/Additional Instructions: -ice the shoulder 4x a day -no lifting -use sling x24-48 hrs and wean as tolerated -follow up with orthopedics in 2 weeks
--- NOTE | 2021-03-13 12:46 | MHC.CM.PN ---
IMM 03/13/2021, EMR REVIEWED, PT W/PARKINSONS & LEWY BODY DEMENTIA ADMITTED TO EXTENDED CARE S/P FALL AND CLOSED REDUCTION OF RIGHT SHOULDER, CM MET W/PT WHO REPORTS HE LIVES W/SO, HAS A CANE HE DOES NOT USE AND HAS NO HOME SERVICES, PT REPORTS HE LOST HIS [facility] SERVICES, PT DID GIVE VERBAL CONSENT FOR CM TO CONTACT SO [facility] WHO REPORTED THAT PT HAS MEALS ON WHEELS AND HOME HEALTH SERVICES W/5 DAYS A WK FOR PERSONAL CARE, CLEANING AND SHOPPING, PER SO PT'S SERVICES WERE STOPPED DUE TO HOSPITAL STAY, REFERRAL PLACED TO [facility] TO LET THEM KNOW HE WILL BE GOING TO STR PRIOR TO RETURN HOME, [facility] AWARE, PT REPORTED DURING INTAKE THAT HE WAS NOT READY TO GO HOME AND WOULD LIKE TO GO SOMEWHERE PRIOR TO D/C, PER PT [facility] ([facility] IS OK D/T [facility] NOT HAVING A BED AVAILABLE. PT DID COMPLETE HCP W/CM, COPY UPLOADED TO [employer] AND PLACED IN CHART. D/C PLAN: [facility] FOR STR TODAY AT 4PM, [facility] FOR BLS TRANSPORT. PT/FAMILY AND NURSING AWARE. HCP: RICK DENISE ([facility]) [phone] [facility]TERNATE [facility] PERDOMO ([facility]) [phone]
[2021-03-13 15:39] VITALS: BP 140/80; PULSE 76; RESP 20; TEMP 36.6; O2SAT 95
== END 2021-03-13 16:49 | disposition skilled nursing facility (03) ==
LOC: HO.ED 03-13 09:53 → HO.S3 03-13 09:53 → HO.SSS 03-13 09:53
PROVIDERS: Orthopaedic Surgery; Emergency Provider Student in an Organized Health Care Education/Training Program; PCP Family Medicine; Visit Provider Physician Assistant
PROC: (CPT 23655; principal; 2021-03-12 12:30)
DX: S43.014A Anterior dislocation of right humerus, initial encounter (principal); W01.0XXA Fall on same level from slipping, tripping and stumbling without subsequent striking against object, initial encounter; G20 Parkinson's disease; Y93.9 Activity, unspecified; Y92.000 Kitchen of unspecified non-institutional (private) residence as the place of occurrence of the external cause; Y99.8 Other external cause status; Z88.0 Allergy status to penicillin; Z88.8 Allergy status to other drugs, medicaments and biological substances; Z79.82 Long term (current) use of aspirin; Z79.899 Other long term (current) drug therapy; Z20.822 Contact with and (suspected) exposure to COVID-19
CPT/HCPCS: 23655; 36415; 73020; 73030; 80053; 81003; 82947; 85025; 85610; 87635; 96374; 96375; 96376; 97116; 97162; 97166; 97530; 99284; 99285; J1885; J2060; J2250; J2270; J3010

== ENCOUNTER 2021-03-13 22:56 | Emergency (ER) | payer MEDICARE, SELFPAY ==
[2021-03-13 23:18] VITALS: BP 148/64; PULSE 88; RESP 15; TEMP 37.4; O2SAT 94; BMI 27.8
[2021-03-13 23:41] VITALS: BP 151/86; PULSE 83; RESP 16; TEMP 36.6; O2SAT 95; BMI 27.8
--- NOTE | 2021-03-14 01:31 | ED_ITS ---
HPI - General Adult General Chief complaint: Anxiety Stated complaint: psych eval Time Seen by Provider: 03/13/21 23:38 Source: patient Mode of arrival: ambulatory Limitations: no limitations History of Present Illness HPI narrative: patient brought to the ED for evaluation of being angry. Patient states he was placed in new rehab for shoulder dislocation hours reduced in the operating room. Patient states he had an angry outburst because he was trying to urinate and no on helped him to urinate and he ended up urinating on himself, which caused a mess. Due to this patient admits to being angry. Patient denies any physical complaints. patient denies any abdominal pain, nausea, vomiting, fever, chills, coughing, chest pain, shortness of breath, headache, suicidal/ homicidal ideation, or any other concerning symptoms. Related Data Home Medications Medication Instructions Recorded Confirmed aspirin 81 mg tablet,delayed 81 mg PO DAILY 10/10/20 03/12/21 release escitalopram oxalate 10 mg tablet 10 mg PO DAILY 10/10/20 03/12/21 rotigotine 2 mg/24 hour 1 patch TOPICAL BEDTIME 10/10/20 03/12/21 transdermal 24 hour patch Previous Rx's Medication Instructions Recorded sildenafil 100 mg tablet 100 mg PO DAILY PRN 30 Days #30 tab 10/10/20 acetaminophen 650 mg PO Q4H PRN 30 Days #240 tab 03/13/21 oxycodone 5 mg PO Q4H 7 Days #42 tab 03/13/21 Allergies Allergy/AdvReac Type Severity Reaction Status Date / Time amoxicillin [AMOXICILLIN] Allergy Intermediate GI UPSET Verified 03/12/21 05:21 propoxyphene [From DARVON] AdvReac Intermediate GI UPSET Verified 03/12/21 05:21 Darvon Allergy Unknown Gastrointestinal Uncoded 03/12/21 05:21 Upset Review of Systems Review of Systems: Yes all other systems are reviewed and are negative Constitutional: Constitutional: Reports as per HPI and Reports no additional constitutional complaints Eyes: Eyes: Reports as per HPI and Reports no additional eye complaints ENT: Reports system reviewed and no additional complaints, except as documented and Reports as per HPI Cardiovascular: Cardiovascular: Reports as per HPI and Reports no additional cardiovascular complaints Respiratory: Respiratory: Reports as per HPI and Reports no additional respiratory complaints Gastrointestinal: Gastrointestinal: Reports as per HPI and Reports no additional gastrointestinal complaints Genitourinary: Genitourinary: Reports no additional male genitourinary complaints and Reports as per HPI Musculoskeletal: Musculoskeletal: Reports no additional musculoskeletal complaints and Reports as per HPI Neurologic: Reports system reviewed and no additional complaints, except as documented and Reports as per HPI Psychiatric: Psychiatric: Reports no additional psychiatric complaints and Reports as per HPI [facility] Past Medical History Medical History Parkinson disease Social History Social History Household Members: Significant Other Housing: House Do you presently have visiting nurse or other home services: Yes ([facility] at home once a month for vitals per patient report.) Patient Tobacco Use Status: Never used Tobacco Advance Directives: No Advance Directives Information Provided: No service: No Current occupational status: retired Physical Exam Vital Signs: Vital Signs: Last Vital Signs Temp 98 F 03/13/21 23:41 Pulse 83 03/13/21 23:41 Resp 16 03/13/21 23:41 BP 151/86 H 03/13/21 23:41 Pulse Ox 95 03/13/21 23:41 Body Mass Index 27.8 Const: General: cooperative, healthy appearing, comfortable, no acute distress, well developed, alert and awake Orientation/consciousness: patient oriented x3 HENMT: Head: Yes normal to inspection, Yes No palpable skull fracture present, Yes normocephalic and Yes atraumatic Eyes: General: appearance normal, both eyes and all related structures Neck: Neck: Yes normal visual inspection, Yes full ROM, Yes no lymphadenopathy, Yes no meningeal signs, Yes trachea midline, Yes supple and No tender Chest: Chest palpation & inspection: normal inspection of the chest and normal palpation of entire chest wall Resp: Effort & Inspection: normal respiratory effort and able to speak in complete sentences Auscultation: clear to auscultation bilaterally Cardio: Jugular venous distension: no JVD Heart sounds: S1 normal heart sound present and S2 normal heart sound present GI: Inspection: Yes normal to inspection and No abdominal wall ecchymosis Palpation (GI): Soft to palpation, not firm, nontender, no guarding and not rigid : General: No CVA tenderness and Yes no CVA tenderness Back/Spine/Pelvis: Back: no CVA tenderness, No CVA tenderness and No back tenderness Skin: General skin exam: no rashes or lesions noted and elasticity normal Neuro: General: patient oriented x3, gait normal, no meningeal signs and CN's II-XI intact bilaterally Cranial nerves: Yes CN's II-XII intact bilaterally Extrem: General: Yes normal to inspection and Yes full ROM Psych: Appearance: grossly normal, well kempt and not disheveled Course Course Course Narrative: Patient had normal labs day of discharge from OR on 03/12/21. Patient vital signs are stable. Reevaluation(s) Reevaluation #1: presently patient is alert oriented X3. Patient is not any distress. patient states he was angry because he no longer wants to be at the rehab. Discussed case with Dr. Moreno who states no need for repeat labs or UA. Patient can be discharged. Patient is not altered and I am not suspecting any infection. Diagnosis behavioral disturbance. neuro exam is intact. Negative for any neuro deficit. Not suspecting any stroke. Not suspecting any cardiac etiology. Patient denies any chest pain or shortness of breath. Time: 01:44 Medical Decision Making [facility] Narrative Medical decision making narrative: Behavioral disturbance Discharge Plan Discharge Clinical Impression: Adjustment disorder Patient Disposition: Home, Self-Care Instructions: Mood Disorders (ED) Additional Instructions: return to the ED immediately for any suicidal / homicidal ideation, auditory / visual hallucinations, fever, chills, altered mental status, chest pain, shortness of breath, abdominal pain, dysuria, hematuria, headache, dizziness, flank pain, coughing, shortness of breath, or any other concerning symptoms. Please follow-up with PCP. Prescriptions: No Action acetaminophen 325 mg Tablet 650 mg PO Q4H PRN (Reason: Pain, Mild (Pain Scale 1-3)) 30 Days Qty: 240 RF: 0 oxycodone 5 mg Tablet 5 mg PO Q4H 7 Days Qty: 42 RF: 0 rotigotine 2 mg/24 hour patch 24 hour 1 patch topical BEDTIME RF: 0 escitalopram oxalate 10 mg tablet 10 mg PO DAILY RF: 0 aspirin 81 mg tablet,delayed release (DR/EC) 81 mg PO DAILY RF: 0 sildenafil 100 mg tablet 100 mg PO DAILY PRN (Reason: sexual activity) 30 Days Qty: 30 RF: 1 Print Language: Maltese
[2021-03-14 02:46] LABS: Glucose Urine UA NEG (NEG); Leukocyte Esterase Urine NEG (NEG); Nitrite Urine NEG (NEG); Urine Blood NEG (NEG); Urine Ketones NEG (NEG); Urine Protein NEG (NEG-TRACE)
[2021-03-14 02:47] LABS: Appearance Urine CLEAR; Color Urine YELLOW; UACC Culture Trigger NO
--- NOTE | 2021-03-14 03:36 | PC.NURSE ---
UPON DISCHARGE PT IS ADAMANT THAT HE WILL NOT GO BACK TO [facility]. PT STATES THE CONDITIONS THERE ARE UNBEARABLE. THIS RN DISCUSSED AT LENGTH W/PTS SON RICK RE: PT RETURNING BACK TO THE SNF AND HIS REFUSAL AND ADMISSION THAT HE WILL TRY TO LEAVE THE SNF IF HE IS RETURNED THERE TONIGHT. PT & HIS SON ARE AGREEABLE TO HAVE THE PATIENT SEE CASE MANAGEMENT IN THE MORNING RE: PLACEMENT AT A DIFFERENT FACILITY
--- NOTE | 2021-03-14 04:48 | PC.NURSE ---
RN ASSISTED W/AMBULATION TO AND FROM RESTROOM. PT DISPLAYS VERY UNSTEADY GAIT AND APPEARS TO ADDITIONALLY HAVE TROUBLE W/BALANCE. PT IS RESTING COMFORTABLY AT THIS TIME W/PLAN OF CARE FOR CASE MANAGEMENT
[2021-03-14 06:00] VITALS: PULSE 78; RESP 18; O2SAT 98
--- NOTE | 2021-03-14 09:38 | MHC.CM.PN ---
PER REVIEW OF PREVIOUS VISIT, PATIENT IS IN FROM [facility] [address]. REFERRAL PLACED FOR FACILITY TO FOLLOW. RN MADE AWARE.
[2021-03-14 11:34] VITALS: BP 140/72; RESP 20
--- NOTE | 2021-03-14 11:40 | PC.NURSE ---
RN aware POC 97
[2021-03-14 11:46] LABS: Glucose, Whole Blood 97 mg/dL (60-115)
[2021-03-14 15:13] VITALS: BP 156/90; PULSE 81; RESP 16; TEMP 36.7; O2SAT 97
--- NOTE | 2021-03-14 17:49 | MHC.CM.ED ---
CM met with patient. Patient unable to participate in CM interview. States his cats were needlessly killed and cannot talk with you . Pt does not seem aware of his surroundings or why he is in the emergency room. Explained to patient that PT feels he needs STR, as he has been falling at home and that his son agrees. Spoke with HCP/son Jesus Tinoco ([phone]), who tells CM that his father fell and dislocated his R shoulder on 03/12, and went to [facility] for STR. Jesus states his father does not take his medication and that his S.O.Lily ([phone]) is unable to care for him at home, as she has lung cancer. 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 Pt had [employer] vaccine in December. Jesus tells CM that his father was diagnosed with Lewy Body Dementia about 3 years ago and has progressively gotten worse since. Son is [facility] STR at [facility] , [facility]2 [facility] and [facility]3 [facility]. Referrals placed. CM will follow for d/c needs.
--- NOTE | 2021-03-14 22:19 | PC.NURSE ---
Pt making sexually inappropriate comments to femal sitter at bedside. refused po meds. sitter changed to male staff. pt having a difficult time acccepting redirection.
[2021-03-15 05:42] VITALS: RESP 16
[2021-03-15 08:31] VITALS: BP 128/78; PULSE 63; RESP 17; O2SAT 95
--- NOTE | 2021-03-15 09:33 | PC.NURSE ---
patient adamantly refused his aspirin and lexapro meds this am. aware.,
[2021-03-15 11:20] VITALS: BP 160/85; PULSE 60; RESP 16; O2SAT 96
[2021-03-15 12:00] VITALS: PULSE 75; RESP 16; O2SAT 95
--- NOTE | 2021-03-15 13:12 | MHC.CM.ED ---
Spoke with Eugene, patient's son/HCP. Updates provided that [facility] and [facility] need more info. [facility] does not have a bed to offer. Eugene verbalized understanding. Continue to monitor for d/c needs.
[2021-03-15 14:00] VITALS: BP 180/92; PULSE 107; RESP 18; TEMP 36.3; O2SAT 96
--- NOTE | 2021-03-15 14:15 | PC.NURSE ---
pt's step-daughter mariia ([phone]) called [facility] and she was updated on pt care/status. pt also spoke to the pt via [facility] portable phone. pt has a flip phone which is but he does not have the correct phone lining sewer with him. step-daughter mariia is aware.
--- NOTE | 2021-03-15 14:29 | P.CNPS_ITS ---
History of Present Illness Date of Service: t Chief Complaint: psych eval Reason for Consult: Assessment of agitation Requesting physician: Angella Wharton Discussed with referring provider: Yes Sources of Information: patient interviewed, chart reviewed and crisis/core team assessment reviewed HPI Narrative: The suha is a 65 year old male admitted to the ED after he fell and he has a dislocation of his right shoulder. He carries the diagnosis of Parkinson's disease, depression and recently Lewy-Body Dementia. The consult was made to assess the patient and suggest treatment options in case of agitation. During the interview, the patient denied any medical problems besides the recent fall. He was anxious regarding his injury but he denied psychotic symptoms, grabiel or safety concerns. Past Psychiatric History: No prior psychiatric admissions, outpatient treatment with Lexapro and Remeron for depression. Medical Evaluation Reviewed: Yes [facility] Medical History Parkinson disease Family History: Denies Substance History: Denies Trauma History: Denies Diagnostics Vital Signs (24Hr): Vital Signs - 24 hr 03/14/21 15:13 03/15/21 05:42 03/15/21 08:31 Temperature 98.1 F Pulse Rate 81 63 Respiratory Rate 16 16 17 Blood Pressure 156/90 H 128/78 Pulse Oximetry 97 95 03/15/21 11:20 03/15/21 12:00 03/15/21 14:00 Temperature 97.3 F Pulse Rate 60 75 107 H Respiratory Rate 16 16 18 Blood Pressure 160/85 H 180/92 H Pulse Oximetry 96 95 96 Body Mass Index 27.8 Labs Labs: Laboratory Results - last 48 hr 03/14/21 03/14/21 02:36 11:39 POC Glucose 97 Urine Color YELLOW Urine Appearance CLEAR Urine pH 6.0 Ur Specific [place] 1.010 Urine Protein NEG Urine Glucose (UA) NEG Urine Ketones NEG Urine Blood NEG Urine Nitrite NEG Ur Leukocyte Esterase NEG Mental Status Exam Mental Status Exam Patient Appearance: Well Grooomed (on hospital gowns) Patient Orientation: Person and Place Level of Consciousness: Awake and Disoriented Patient Behavior: Appropriate Mood Description: Withdrawn Affect Description: Constricted Patient Cognition Impaired: Yes Ability to Follow Directions: Fair Speech Pattern: Clear Memory Description: Remote Impaired and Immediate Impaired Hallucinations: None Thought Process: Distracted Thought Content: positive for Circumstantial Judgement: Poor Medications Medications Current Medications Generic Name Dose Route Start Last Admin Trade Name Freq PRN Reason Stop Dose Admin Aspirin 81 mg 03/15/21 09:00 03/15/21 09:33 Aspirin Enteric Coated 81 Mg Tablet.Dr PO Not Given DAILY SALMA Escitalopram Oxalate 10 mg 03/15/21 09:00 03/15/21 09:32 Escitalopram Oxalate 10 Mg Tablet PO Not Given DAILY SALMA Lorazepam 0.5 mg 03/15/21 13:49 Lorazepam 0.5 Mg Tablet PO Q6H PRN anxiety Mirtazapine 3.75 mg 03/14/21 22:15 03/14/21 23:13 Mirtazapine 7.5 Mg Tablet PO Not Given BEDTIME SALMA Non-Formulary Medication 1 patch 03/14/21 22:15 03/14/21 22:52 Rotigotine [Neupro] TOPICAL 1 patch BEDTIME SALMA Administration Oxycodone HCl 5 mg 03/14/21 22:10 Oxycodone Hcl Immed Release 5 Mg Tablet PO Q4H PRN Pain, Severe (Pain Scale 7-10) Allergies Allergies Allergy/AdvReac Type Severity Reaction Status Date / Time amoxicillin [AMOXICILLIN] Allergy Intermediate GI UPSET Verified 03/12/21 05:21 propoxyphene [From DARVON] AdvReac Intermediate GI UPSET Verified 03/12/21 05:21 Darvon Allergy Unknown Gastrointestinal Uncoded 03/12/21 05:21 Upset Assessment & Plan Assessment & Plan (1) Parkinson's disease: Status: Acute Code(s): G20 - Parkinson's disease Recommendations: Adult male with Parkinsons', Lewy-Body dementia and other comorbilities, admitted after a fall with the dislocation of the right shoulder. Plan: 1. Since the patient has Lewy-body dementia, he is extremely sensitive to antipsychotics, so avoid the use of this class of medications. 2. Ativan 0.5 mg po q6h PRN anxiety. 3. Reassessment as demand. (2) Anterior dislocation of right shoulder: Status: Acute Code(s): S43.014A - Anterior dislocation of right humerus, initial encounter (3) Lewy body dementia: Status: Acute Code(s): G31.83 - Dementia with Lewy bodies; F02.80 - Dementia in other diseases classified elsewhere without behavioral disturbance Greater than 50% of the session was spent on counseling and/or coordination of care
--- NOTE | 2021-03-15 14:36 | PC.NURSE ---
[place] [facility] [place] [facility] [place].
--- NOTE | 2021-03-15 15:16 | MHC.CM.ED ---
[facility] is able to offer a bed today. Patient can leave at 4pm. [facility] BLS booked. [facility] with chart. Patient, son , Celestine RN and Mimi COP EXAMINER. Continue to monitor for d/c needs.
[2021-03-15 17:37] VITALS: BP 166/84; PULSE 86; RESP 16; TEMP 36.2; O2SAT 97
== END 2021-03-15 17:40 ==
PROVIDERS: Physician Assistant; Emergency Provider Emergency Medicine
DX: F43.24 Adjustment disorder with disturbance of conduct (principal); F02.80 Dementia in other diseases classified elsewhere, unspecified severity, without behavioral disturbance, psychotic disturbance, mood disturbance, and anxiety; S43.014A Anterior dislocation of right humerus, initial encounter; G20 Parkinson's disease; F41.9 Anxiety disorder, unspecified
CPT/HCPCS: 81003; 82947; 99285

== ENCOUNTER → 2021-09-28 13:27 | Outpatient (BNVA) | payer MEDICARE, SELFPAY | PROVIDERS: PCP Family Medicine; Visit Provider Psychiatry & Neurology Neurology | DX: G20 Parkinson's disease (principal); G31.83 Neurocognitive disorder with Lewy bodies; F02.80 Dementia in other diseases classified elsewhere, unspecified severity, without behavioral disturbance, psychotic disturbance, mood disturbance, and anxiety | CPT/HCPCS: Q3014 ==

== ENCOUNTER → 2021-10-29 11:28 | Outpatient (BNVA) | payer MEDICARE, SELFPAY | PROVIDERS: Visit Provider Psychiatry & Neurology Neurology | DX: G31.83 Neurocognitive disorder with Lewy bodies (principal); G20 Parkinson's disease; F02.80 Dementia in other diseases classified elsewhere, unspecified severity, without behavioral disturbance, psychotic disturbance, mood disturbance, and anxiety | CPT/HCPCS: 99212 ==

== ENCOUNTER → 2021-12-20 14:00 | Outpatient (BNVA) | payer MEDICARE, SELFPAY | PROVIDERS: Visit Provider Psychiatry & Neurology Neurology | DX: G20 Parkinson's disease (principal); G31.83 Neurocognitive disorder with Lewy bodies; F02.80 Dementia in other diseases classified elsewhere, unspecified severity, without behavioral disturbance, psychotic disturbance, mood disturbance, and anxiety | CPT/HCPCS: Q3014 ==

== ENCOUNTER 2021-12-27 13:50 | Emergency (ER) | payer MEDICARE, SELFPAY ==
--- NOTE | ~2021-12-27 | CT_ITS ---
EXAMINATION: CT HEAD WITHOUT CONTRAST CLINICAL INFORMATION: Nausea. Tremors. COMPARISON: CT head 11/20/2020 TECHNIQUE: Contiguous axial imaging was performed from the skull base to vertex without intravenous administration of contrast. Coronal and sagittal reformatted images are performed at the scanner This CT examination was performed using dose optimization techniques as appropriate, variously including the following: *Automated exposure control *Adjustment of mA and/or kV according to patient size (this includes techniques or standardized protocols for targeted exams where dose is matched to indication/reason for exam; i.e. extremities or head) *Use of iterative reconstruction technique DLP: 1850 mGy-cm FINDINGS: There is no evidence of acute intracranial hemorrhage or territorial infarction. No abnormal mass effect or midline shift is seen. Pradhan to white matter differentiation is well preserved. No extra-axial fluid collections are identified. The ventricles are normal in size. There is no abnormal attenuation within the brain parenchyma. The osseous structures and soft tissues are normal. The mastoid air cells and visualized portions of the paranasal sinuses are well aerated. CT/CT head/brain wo con IMPRESSION: No acute intracranial pathology.
--- NOTE | ~2021-12-27 | CT_ITS ---
Indication: Vomiting, question small bowel obstruction, question colitis, question pneumonia Exam; CT of the chest abdomen pelvis noncontrast. Axial imaging with coronal and sagittal reformatted images. Radiation dose is [address] examination was performed using dose optimization techniques as appropriate, variously including the following: *Automated exposure control *Adjustment of mA and/or kV according to patient size (this includes techniques or standardized protocols for targeted exams where dose is matched to indication/reason for exam; i.e. extremities or head) *Use of iterative reconstruction technique Comparison is made to CT of the pelvis dated 11/20/[address] chest dated 01/08/2017 CT chest; The thoracic inlet is within normal limits comparable to previous. The axillary regions are unremarkable. Centrally there is no bulky adenopathy. This is a noncontrast study but the hilar regions do not appear pathologically enlarged. Imaging of the lung wagner. Right lung; There is no infiltrate or effusion. Left lung; There is no infiltrate or effusion. Upper abdomen; Once again multiple areas of low density in the liver. Some of these are larger than previous. Some new from previous. Low-attenuation, well-circumscribed most consistent with cystic change Region of the gallbladder within normal limits. Area of the pancreas unremarkable. The spleen is within normal limits. Area the adrenal glands comparable to previous. The kidneys are nonhydronephrotic. Probable cyst inferior pole right kidney. The bladder is within normal limits. The abdominal wall is intact. The bowel pattern is nonobstructing. Mild stool in the colon. The appendix is normal. There is no free fluid in the deep pelvis. There is no evidence for bulky adenopathy. Review of the bone windows does not demonstrate suspicion for a bony lesion. CT/CT abdomen pelvis wo con IMPRESSION: No acute finding. In the chest there is no infiltrate or effusion. No acute finding in the abdomen pelvis. No evidence for an obstruction. No suspicion for colitis. Nonobstructing bowel pattern. No free fluid. Probable evolving cystic change in the liver.
[2021-12-27 14:02] VITALS: BP 140/87; BP 168/90; PULSE 72; PULSE 84; RESP 18; TEMP 36.7; O2SAT 96; BMI 21.4
--- NOTE | 2021-12-27 14:16 | ECG_ITS ---
Test Reason : ANXIETY Blood Pressure : / mmHG Vent. Rate : 079 BPM Atrial Rate : 079 BPM P-R Int : 134 ms QRS Dur : 096 ms QT Int : 390 ms P-R-T Axes : 077 -49 073 degrees QTc Int : 447 ms Poor data quality Sinus rhythm Left anterior fascicular block Minimal voltage criteria for LVH, may be normal variant ( Enrrique product ) Septal infarct , age undetermined Abnormal ECG When compared with ECG of 06-JAN-2020 19:54, Septal infarct is now Present Referred By: Dani Berry Electronically Signed By:SO CÁRDENAS MD
--- NOTE | 2021-12-27 14:21 | ED.GENADULT ---
HPI - General Adult General Chief complaint: Psychiatric Symptoms Stated complaint: ANXIETY Time Seen by Provider: 12/27/21 14:50 Source: patient Mode of arrival: ambulatory Limitations: no limitations History of Present Illness HPI narrative: 66-year-old male with history of Parkinson's, anxiety, and Lewy body dementia, presents to the ED for anxiety. Patient states this this morning feeling anxious and worrisome. Patient denies any chest pain, shortness of breath coughing, fever, chills abdominal pain, leg swelling, rash, redness, or swelling. Patient states feeling anxious may be due to medication change in his Parkinson's medication but does not remember which meds he is on and which medication was switched. Patient took his anxiety medication this morning. Related Data Home Medications Medication Instructions Recorded Confirmed aspirin 81 mg tablet,delayed 81 mg PO DAILY 10/10/20 03/14/21 release escitalopram oxalate 10 mg tablet 10 mg PO DAILY 10/10/20 03/14/21 pimavanserin 34 mg capsule 34 mg PO DAILY 09/28/21 (Nuplazid) Previous Rx's Medication Instructions Recorded acetaminophen 325 mg tablet 650 mg PO Q4H PRN 30 Days #240 tab 03/13/21 rasagiline 1 mg tablet (Azilect) 1 mg PO DAILY #30 tab 10/29/21 rotigotine 3 mg/24 hour 3 mg TRANSDERMAL DAILY #30 ea 12/17/21 transdermal 24 hour patch (Neupro) Allergies Allergy/AdvReac Type Severity Reaction Status Date / Time amoxicillin [AMOXICILLIN] Allergy Intermediate GI UPSET Verified 10/29/21 11:44 propoxyphene [From DARVON] AdvReac Intermediate GI UPSET Verified 10/29/21 11:44 Darvon Allergy Unknown Gastrointestinal Uncoded 10/29/21 11:44 Upset Review of Systems Review of Systems: Anxious. Yes all other systems are reviewed and are negative PMFSH Past Medical History Medical History Anxiety Parkinson disease Family History Family History Father Heart disease Mother Cancer Social History Social History Household Members: Significant Other Housing: House Do you presently have visiting nurse or other home services: Yes ([facility] at home once a month for vitals per patient report.) Alcohol intake: never Patient Tobacco Use Status: Never used Tobacco Use of substances other than those prescribed or required for medical reasons: No Advance Directives: No Advance Directives Information Provided: No service: No Current occupational status: retired Physical Exam ED Vital Signs: Vital Signs - 24 hr 12/27/21 14:02 Temperature 98.1 F Pulse Rate 72 Respiratory Rate 18 Blood Pressure 168/90 H Pulse Oximetry 96 BMI result Body Mass Index 21.4 Const General: cooperative, healthy appearing, comfortable, no acute distress, well developed, alert, awake and Physically active Orientation/consciousness: patient oriented x3 [facility] Head: Yes normal to inspection, Yes No palpable skull fracture present, Yes normocephalic, Yes atraumatic and No abrasion Eyes General: appearance normal, both eyes and all related structures Neck Neck: Yes normal visual inspection, Yes full ROM, Yes no lymphadenopathy, Yes no meningeal signs, Yes trachea midline, Yes supple, No anterior neck swelling and No tender Chest Chest palpation & inspection: normal inspection of the chest Resp Effort & Inspection: normal respiratory effort and able to speak in complete sentences Auscultation: clear to auscultation bilaterally GI Inspection: Yes normal to inspection and No abdominal wall ecchymosis Palpation (GI): Soft to palpation, not firm, nontender, no guarding and not rigid General: No CVA tenderness and Yes no CVA tenderness Back/Spine/Pelvis Back: no CVA tenderness, No CVA tenderness and No back tenderness Skin General skin exam: no rashes or lesions noted and elasticity normal Neuro Other: Patient has tremors of extremities at baseline. Negative pronator drift. Negative facial droop. Negative slurred speech. Negative slurred speech. All extremities equal strength 5+. General: patient oriented x3, gait normal (baseline shuffle due to parkinson), tone normal, no meningeal signs, no focal motor deficits and CN's II-XI intact bilaterally Cranial nerves: Yes CN's II-XII intact bilaterally Extrem Other: Negative for any swelling of lower extremities, pitting edema, calf tenderness General: Yes normal to inspection and Yes full ROM Psych Appearance: grossly normal, well kempt and not disheveled Course Course Course Narrative: Patient seems to be at baseline. Negative for any neuro deficits. History aid with medical evaluation including EKG and troponin. We will look for source of infection. Symptoms due to anxiety but will do medical workup Reevaluation(s) Reevaluation #1: Triage states abdominal pain but patient has no abdominal tenderness due to dementia was sent for imaging to check for abdominal etiology. Patient 1 episode of emesis during ED visit.. Chest CT ordered makes does no pneumonia. Abdominal CT scan done without IV due IV contrast shortage. Reevaluation #2: Patient head CT chest CT is done CT came back normal. EKG negative STEMI. Troponin negative after having anxiety. Patient is at baseline mentally which is alert oriented x2. Waiting for UA and 2nd troponin result. Sign out to PALS NURSE Ar[place]. Wrote on discharge papers of family for them to contact neurologist and primary care provider to see if medications for his Parkinson's needs to be adjusted but presently does no medical emergency pending urinalysis and 2nd troponin. Patient does have anxiety and this may be due to his anxiety. Time: 17:43 Medical Decision Making MDM Narrative Medical decision making narrative: Anxiety. Dementia Lab Data Result diagrams: 12/27/21 14:41 12/27/21 14:41 Labs: Lab Results 12/27/21 12/27/21 12/27/21 Range/Units 14:41 14:41 14:41 WBC 12.3 H (4.8-10.8) X10*3/uL RBC 4.76 (4.60-5.80) X10*6/uL Hgb 15.0 (14.0-18.0) g/dl Hct 44.5 (42.0-52.0) % MCV 93.5 (80.0-98.0) fL MCH 31.5 (27.0-33.0) pg MCHC 33.7 (31.0-36.0) g/dl RDW 12.8 (11.0-16.0) % Plt Count 184 (160-400) X10*3/uL MPV 9.5 (9.4-12.4) fL Immature Gran % (Auto) 0.3 (0.0-0.4) % Neut % (Auto) 81.4 H (45-73) % Lymph % (Auto) 12.6 L (20-40) % [place] % (Auto) 5.4 (2-11) % Eos % (Auto) 0.1 (0-4) % Baso % (Auto) 0.2 (0-2) % Lymph # (Auto) 1.6 (1.2-4.9) X10*3/uL [place] # (Auto) 0.7 (0.1-1.2) X10*3/uL Eos # (Auto) 0.0 (0.0-0.4) X10*3/uL Baso # (Auto) 0.0 (0.0-0.2) X10*3/uL Abs Immat Gran (auto) 0.04 H (0.00-0.03) X10*3/uL Absolute Neuts (auto) 10.0 H (2.0-8.3) x10*3/uL Absolute Nucleated RBC 0.000 (0.0-0.012) X10*3/uL Nucleated RBC % (auto) 0.0 (0.0-0.2) /100WBC PT (9.9-13.0) SEC INR (0.9-1.1) APTT (24.1-38.0) SEC Sodium 138 (135-145) mmol/L Potassium 4.4 (3.3-5.1) mmol/L Chloride 106 (96-108) mmol/L Carbon Dioxide 22 (22-29) mmol/L Anion Gap 14 (12-20) BUN 17 H (9-16) mg/dL Creatinine 0.93 (0.5-1.4) mg/dL Estim Creat Clear Calc 73.1 Estimated GFR > 60 Random Glucose 154 H (60-115) mg/dL Calcium 9.3 D (8.4-10.2) mg/dL Magnesium 1.9 (1.6-2.6) mg/dL Total Bilirubin 0.7 (0.0-1.0) mg/dL AST 14 (5-37) U/L ALT 17 (0-40) U/L Alkaline Phosphatase 65 (39-117) U/L Total Creatine Kinase 55 (38-174) U/L Troponin I High Sens < 3.5 (<3.5-35.0) ng/L Total Protein 6.0 L (6.5-8.0) g/dL Albumin 4.0 (3.5-5.0) g/dL Lipase 12 (8-78) U/L Ethyl Alcohol mg/dL COVID-19 (ARCHIE) (Negative) COVID-19 Clin Com Influenza Type A (TONI) (Negative) Influenza Type B (TONI) (Negative) Influenza A & B Note 12/27/21 12/27/21 12/27/21 Range/Units 14:41 14:41 14:41 WBC (4.8-10.8) X10*3/uL RBC (4.60-5.80) X10*6/uL Hgb (14.0-18.0) g/dl Hct (42.0-52.0) % MCV (80.0-98.0) fL MCH (27.0-33.0) pg MCHC (31.0-36.0) g/dl RDW (11.0-16.0) % Plt Count (160-400) X10*3/uL MPV (9.4-12.4) fL Immature Gran % (Auto) (0.0-0.4) % Neut % (Auto) (45-73) % Lymph % (Auto) (20-40) % [place] % (Auto) (2-11) % Eos % (Auto) (0-4) % Baso % (Auto) (0-2) % Lymph # (Auto) (1.2-4.9) X10*3/uL [place] # (Auto) (0.1-1.2) X10*3/uL Eos # (Auto) (0.0-0.4) X10*3/uL Baso # (Auto) (0.0-0.2) X10*3/uL Abs Immat Gran (auto) (0.00-0.03) X10*3/uL Absolute Neuts (auto) (2.0-8.3) x10*3/uL Absolute Nucleated RBC (0.0-0.012) X10*3/uL Nucleated RBC % (auto) (0.0-0.2) /100WBC PT 12.3 (9.9-13.0) SEC INR 1.1 (0.9-1.1) APTT 25.6 (24.1-38.0) SEC Sodium (135-145) mmol/L Potassium (3.3-5.1) mmol/L Chloride (96-108) mmol/L Carbon Dioxide (22-29) mmol/L Anion Gap (12-20) BUN (9-16) mg/dL Creatinine (0.5-1.4) mg/dL Estim Creat Clear Calc Estimated GFR Random Glucose (60-115) mg/dL Calcium (8.4-10.2) mg/dL Magnesium (1.6-2.6) mg/dL Total Bilirubin (0.0-1.0) mg/dL AST (5-37) U/L ALT (0-40) U/L Alkaline Phosphatase (39-117) U/L Total Creatine Kinase (38-174) U/L Troponin I High Sens (<3.5-35.0) ng/L Total Protein (6.5-8.0) g/dL Albumin (3.5-5.0) g/dL Lipase (8-78) U/L Ethyl Alcohol mg/dL COVID-19 (ARCHIE) Negative (Negative) COVID-19 Clin Com See Note Influenza Type A (TONI) Negative (Negative) Influenza Type B (TONI) Negative (Negative) Influenza A & B Note See Note 12/27/21 Range/Units 14:41 WBC (4.8-10.8) X10*3/uL RBC (4.60-5.80) X10*6/uL Hgb (14.0-18.0) g/dl Hct (42.0-52.0) % MCV (80.0-98.0) fL MCH (27.0-33.0) pg MCHC (31.0-36.0) g/dl RDW (11.0-16.0) % Plt Count (160-400) X10*3/uL MPV (9.4-12.4) fL Immature Gran % (Auto) (0.0-0.4) % Neut % (Auto) (45-73) % Lymph % (Auto) (20-40) % [place] % (Auto) (2-11) % Eos % (Auto) (0-4) % Baso % (Auto) (0-2) % Lymph # (Auto) (1.2-4.9) X10*3/uL [place] # (Auto) (0.1-1.2) X10*3/uL Eos # (Auto) (0.0-0.4) X10*3/uL Baso # (Auto) (0.0-0.2) X10*3/uL Abs Immat Gran (auto) (0.00-0.03) X10*3/uL Absolute Neuts (auto) (2.0-8.3) x10*3/uL Absolute Nucleated RBC (0.0-0.012) X10*3/uL Nucleated RBC % (auto) (0.0-0.2) /100WBC PT (9.9-13.0) SEC INR (0.9-1.1) APTT (24.1-38.0) SEC Sodium (135-145) mmol/L Potassium (3.3-5.1) mmol/L Chloride (96-108) mmol/L Carbon Dioxide (22-29) mmol/L Anion Gap (12-20) BUN (9-16) mg/dL Creatinine (0.5-1.4) mg/dL Estim Creat Clear Calc Estimated GFR Random Glucose (60-115) mg/dL Calcium (8.4-10.2) mg/dL Magnesium (1.6-2.6) mg/dL Total Bilirubin (0.0-1.0) mg/dL AST (5-37) U/L ALT (0-40) U/L Alkaline Phosphatase (39-117) U/L Total Creatine Kinase (38-174) U/L Troponin I High Sens (<3.5-35.0) ng/L Total Protein (6.5-8.0) g/dL Albumin (3.5-5.0) g/dL Lipase (8-78) U/L Ethyl Alcohol < 10 mg/dL COVID-19 (ARCHIE) (Negative) COVID-19 Clin Com Influenza Type A (TONI) (Negative) Influenza Type B (TONI) (Negative) Influenza A & B Note ECG Data Interpretation: Sinus rhythm. Left anterior fascicular block ( old), reticular recently 9. Pr interval 154. QRS 96 pr QTC 447. Negative STEMI Discharge Plan Discharge Clinical Impression: Lewy body dementia, Anxiety Patient Disposition: Home, Self-Care Instructions: Dementia (ED), Anxiety (ED) Additional Instructions: Your medical evaluation came back normal. Recommend follow-up with her primary care provider and neurologist in regards to review of your Parkinson's medication to see if it needs to be adjusted. Return to the ED immediately for any suicidal/homicidal ideation, auditory/visual hallucinations, chest pain, shortness of breath, abdominal pain, slurred speech, facial droop, paralysis of extremity, dizziness, or any other concerning symptoms Prescriptions: No Action Neupro 3 mg/24 hour patch 24 hour 3 mg transdermal DAILY Qty: 30 3RF acetaminophen 325 mg Tablet 650 mg PO Q4H PRN (Reason: Pain, Mild (Pain Scale 1-3)) 30 Days Qty: 240 0RF escitalopram oxalate 10 mg tablet 10 mg PO DAILY 0RF aspirin 81 mg tablet,delayed release (DR/EC) 81 mg PO DAILY 0RF Label Comments: pt states he no longer takes. Nuplazid 34 mg capsule 34 mg PO DAILY 0RF Rx Instructions: on hold rasagiline [Azilect] 1 mg tablet 1 mg PO DAILY Qty: 30 0RF Print Language: Yakut
--- NOTE | 2021-12-27 14:40 | MHC.CARE ---
[employer] [employer] sheet submitted
[2021-12-27 14:50] LABS: MANUAL DIFF FLAG NO
[2021-12-27 14:51] LABS: Basophils Percent Auto 0.2 % (0-2); Eosinophils Percent Auto 0.1 % (0-4); Hematocrit 44.5 % (42.0-52.0); Imm Gran Abs Auto 0.04 X10*3/uL (0.00-0.03); Imm Gran Pct Auto 0.3 % (0.0-0.4); Lymphocytes Absolute Auto 1.6 X10*3/uL (1.2-4.9); Lymphocytes Percent Auto 12.6 % (20-40); Mean Corpuscular HGB Conc 33.7 g/dl (31.0-36.0); Mean Corpuscular Hemoglobin 31.5 pg (27.0-33.0); Mean Corpuscular Volume 93.5 fL (80.0-98.0); Mean Platelet Volume 9.5 fL (9.4-12.4); Monocytes Absolute Auto 0.7 X10*3/uL (0.1-1.2); Monocytes Percent Auto 5.4 % (2-11); Neutrophils Percent Auto 81.4 % (45-73); Platelet Count 184 X10*3/uL (160-400); Red Blood Count 4.76 X10*6/uL (4.60-5.80); Red Cell Distribution Width 12.8 % (11.0-16.0); White Blood Count 12.3 X10*3/uL (4.8-10.8)
[2021-12-27] MEDS: 0.9 % Sodium Chloride 1,000 ML 999 ML IV (14:51)
[2021-12-27] MEDS: ondansetron HCL 4 MG/2 ML VIAL IVPUSH (14:51)
[2021-12-27 15:01] LABS: INTERNATIONAL NORM RATIO 1.1 (0.9-1.1); Prothrombin Time 12.3 SEC (9.9-13.0)
[2021-12-27 15:04] LABS: Partial Thromboplastin Time 25.6 SEC (24.1-38.0)
[2021-12-27 15:08] LABS: IDNOW Serial# 16C4AD1C
[2021-12-27 15:09] LABS: Influenza A Negative (Negative); Influenza B2 Negative (Negative)
[2021-12-27 15:11] LABS: Alanine Aminotransferase 17 U/L (0-40); Alkaline Phosphatase 65 U/L (39-117); Anion Gap 14 (12-20); Aspartate Amino Transferase 14 U/L (5-37); Bilirubin Total 0.7 mg/dL (0.0-1.0); Blood Urea Nitrogen 17 mg/dL (9-16); COVID-19 Test Negative (Negative); Calcium 9.3 mg/dL (8.4-10.2); Carbon Dioxide 22 mmol/L (22-29); Chloride 106 mmol/L (96-108); Creatinine Clr Calc Pharmacy 73.1; Estimated Glomerular Filt Rate > 60; Glucose Random 154 mg/dL (60-115); IDNOW Serial# 55D5AD1C; Potassium 4.4 mmol/L (3.3-5.1); Sodium 138 mmol/L (135-145)
[2021-12-27 15:14] LABS: Troponin-I High Sensitivity < 3.5 ng/L (<3.5-35.0)
[2021-12-27] MEDS: Metoclopramide HCl 10 MG/2 ML VIAL IVPUSH (15:16)
[2021-12-27 15:49] LABS: Lipase 12 U/L (8-78)
[2021-12-27 15:55] LABS: Magnesium 1.9 mg/dL (1.6-2.6)
[2021-12-27 16:31] LABS: Ethanol < 10 mg/dL
[2021-12-27 18:23] LABS: Appearance Urine CLEAR; Color Urine YELLOW; Glucose Urine UA NEG (NEG); Leukocyte Esterase Urine NEG (NEG); Nitrite Urine NEG (NEG); Specific Gravity - Urine 1.025 (1.005-1.025); UACC Culture Trigger NO; Urine Blood TRACE (NEG); Urine Ketones 15 MG/DL (NEG); Urine Protein TRACE MG/DL (NEG-TRACE)
[2021-12-27 18:32] LABS: Bacteria Urine TRACE /LPF; Mucus Urine TRACE /LPF; Squamous Epithelial Cell Urine TRACE /LPF; WBC Urine 0 /HPF (0-4)
[2021-12-27 18:40] VITALS: BP 151/91; PULSE 85; RESP 18; TEMP 36.9; O2SAT 96
[2021-12-27 18:40] LABS: Amphetamine Screen Urine Not Detected (Not Detect); Barbiturates, Urine Not Detected (Not Detect); Benzodiazepines Screen Urine Not Detected (Not Detect); Cannabinoid Screen Urine Not Detected (Not Detect); Cocaine Screen Urine Not Detected (Not Detect); Fentanyl, urine Not Detected (Not Detect); Opiate Screen Urine Not Detected (Not Detect); Phencyclidine Screen Urine Not Detected (Not Detect)
[2021-12-27 18:45] LABS: Troponin-I High Sensitivity < 3.5 ng/L (<3.5-35.0)
--- NOTE | 2021-12-27 19:15 | PC.NURSE ---
Assumed care of pt Pt resting on stretcher asking for update Pt informed that this RN will check with provider Per pt, walks with shuffle gait at home from one spot to another without any assistive device Per pt, girlfriend helps pt with driving and medications. per pt, [employer] delivers their food and an aid comes to their home 3x/week to help him get shower Per pt, son lives apart from pt. Called pt's son and girlfriend with no answer. Voicemail left with both phone calls.
[2021-12-27 19:49] VITALS: BP 161/70; PULSE 89; RESP 18; TEMP 36.8; O2SAT 97
--- NOTE | 2021-12-27 19:58 | PC.NURSE ---
Spoke with pt's son, per son pt safe at home with grilfriend
== END 2021-12-27 20:24 | disposition home or self-care (01) ==
PROVIDERS: Physician Assistant; Emergency Provider Emergency Medicine; PCP Family Medicine
DX: G31.83 Neurocognitive disorder with Lewy bodies (principal); F02.80 Dementia in other diseases classified elsewhere, unspecified severity, without behavioral disturbance, psychotic disturbance, mood disturbance, and anxiety; R25.1 Tremor, unspecified; F41.1 Generalized anxiety disorder; F43.0 Acute stress reaction; R11.2 Nausea with vomiting, unspecified; Z20.822 Contact with and (suspected) exposure to COVID-19; Z79.899 Other long term (current) drug therapy
CPT/HCPCS: 36415; 70450; 71250; 74176; 80053; 80307; 81001; 82077; 82550; 83690; 83735; 84484; 85025; 85610; 85730; 87502; 87635; 93005; 96361; 96374; 96375; 99284; 99285; J2405; J2765

== ENCOUNTER → 2022-01-24 11:01 | Outpatient (BNVA) | payer MEDICARE, SELFPAY | PROVIDERS: PCP Family Medicine; Visit Provider Nurse Practitioner Family | DX: G31.83 Neurocognitive disorder with Lewy bodies (principal); F02.80 Dementia in other diseases classified elsewhere, unspecified severity, without behavioral disturbance, psychotic disturbance, mood disturbance, and anxiety; F41.9 Anxiety disorder, unspecified; G20 Parkinson's disease | CPT/HCPCS: 99212 ==

== ENCOUNTER 2022-02-24 07:39 | Emergency (ER) | payer MEDICARE, SELFPAY ==
--- NOTE | 2022-02-24 | ECG_ITS ---
Test Reason : CHEST PAIN Blood Pressure : / mmHG Vent. Rate : 066 BPM Atrial Rate : 066 BPM P-R Int : 146 ms QRS Dur : 096 ms QT Int : 404 ms P-R-T Axes : 069 -50 035 degrees QTc Int : 423 ms Normal sinus rhythm Left anterior fascicular block Abnormal ECG When compared with ECG of 27-DEC-2021 14:40, Nonspecific T wave abnormality now evident in Inferior leads Referred By: Generic ED Physician Electronically Signed By:JUDIT MEDINA
--- NOTE | ~2022-02-24 | XR_ITS ---
EXAMINATION: XR CHEST CLINICAL INFORMATION: Chest pain. COMPARISON: 01/06/2020 chest radiograph. TECHNIQUE: Frontal view of the chest was obtained. FINDINGS: No significant abnormality is noted involving the heart, lungs, mediastinum, bony thorax or soft tissues. XR/XR chest 1V IMPRESSION: No acute cardiopulmonary process.
--- NOTE | ~2022-02-24 | CT_ITS ---
EXAMINATION: CT CERVICAL SPINE WITHOUT CONTRAST CLINICAL INFORMATION: Fall COMPARISON: November 20, 2020 TECHNIQUE: Thin section axial scanning with coronal and sagittal reconstruction. This CT examination was performed using dose optimization techniques as appropriate, variously including the following: *Automated exposure control *Adjustment of mA and/or kV according to patient size (this includes techniques or standardized protocols for targeted exams where dose is matched to indication/reason for exam; i.e. extremities or head) *Use of iterative reconstruction technique DLP: 328 mGy-cm FINDINGS: No abnormal prevertebral soft tissue swelling. Paraspinal muscle fat planes are maintained. No acute cervical spine fracture. There is some mild narrowing and spurring seen at the C4-C5 level with moderate narrowing at the C5-C6 level. There is some spurring present at these levels. There is noted to be right facet arthropathy at the C6-C7 level on the right. There is approximately 1.5 mm of anterior displacement of C6 in respect to C5. Pterygoid plates intact. No significant abnormality of the temporomandibular joints identified. Visualized paranasal sinuses and mastoid air cells unremarkable. Lung apices appear unremarkable. CT/CT cervical spine wo con IMPRESSION: No acute cervical spine fracture. Cervical spondylosis C4-C7 as described. Fleischner guidelines were followed.
--- NOTE | ~2022-02-24 | CT_ITS ---
EXAMINATION: CT HEAD WITHOUT CONTRAST CLINICAL INFORMATION: Fall COMPARISON: December 27, 2021 and November 20, 2020 TECHNIQUE: Contiguous axial imaging was performed from the skull base to vertex without intravenous administration of contrast. This CT examination was performed using dose optimization techniques as appropriate, variously including the following: *Automated exposure control *Adjustment of mA and/or kV according to patient size (this includes techniques or standardized protocols for targeted exams where dose is matched to indication/reason for exam; i.e. extremities or head) *Use of iterative reconstruction technique DLP: 685 mGy-cm FINDINGS: There is no evidence of acute intracranial hemorrhage or territorial infarction. No abnormal mass effect or midline shift is seen. Pradhan to white matter differentiation is well preserved. No extra-axial fluid collections are identified. The ventricles are normal in size. There is no abnormal attenuation within the brain parenchyma. The osseous structures and soft tissues are normal. The mastoid air cells and visualized portions of the paranasal sinuses are well aerated. CT/CT head/brain wo con IMPRESSION: No acute intracranial pathology.
--- NOTE | ~2022-02-24 | XR_ITS ---
EXAMINATION: XR SHOULDER, LEFT CLINICAL INFORMATION: Left shoulder pain status post fall. COMPARISON: None TECHNIQUE: AP external rotation, Grashey, scapular Y, and axillary views of the left shoulder. FINDINGS: Mild degenerative joint changes are seen. There is no acute fracture or dislocation. The visualized left ribs are intact. The soft tissues are unremarkable. XR/XR shoulder LT min 2V IMPRESSION: Mild left shoulder degenerative joint changes. No acute fracture.
[2022-02-24 07:46] VITALS: BP 153/88; PULSE 75; RESP 16; TEMP 36.5; O2SAT 97; BMI 19.6
[2022-02-24 07:58] LABS: MANUAL DIFF FLAG NO
[2022-02-24 08:07] LABS: Basophils Percent Auto 0.3 % (0-2); Eosinophils Absolute Auto 0.1 X10*3/uL (0.0-0.4); Eosinophils Percent Auto 1.2 % (0-4); Hematocrit 47.7 % (42.0-52.0); Hemoglobin 16.2 g/dl (14.0-18.0); Imm Gran Abs Auto 0.03 X10*3/uL (0.00-0.03); Imm Gran Pct Auto 0.4 % (0.0-0.4); Lymphocytes Absolute Auto 1.6 X10*3/uL (1.2-4.9); Lymphocytes Percent Auto 23.9 % (20-40); Mean Corpuscular Hemoglobin 32.1 pg (27.0-33.0); Mean Corpuscular Volume 94.5 fL (80.0-98.0); Mean Platelet Volume 9.2 fL (9.4-12.4); Monocytes Absolute Auto 0.6 X10*3/uL (0.1-1.2); Monocytes Percent Auto 8.4 % (2-11); Neutrophils Absolute Auto 4.5 x10*3/uL (2.0-8.3); Neutrophils Percent Auto 65.8 % (45-73); Platelet Count 192 X10*3/uL (160-400); Red Blood Count 5.05 X10*6/uL (4.60-5.80); Red Cell Distribution Width 13.2 % (11.0-16.0); White Blood Count 6.8 X10*3/uL (4.8-10.8)
[2022-02-24 08:19] LABS: Anion Gap 12 (12-20); Blood Urea Nitrogen 16 mg/dL (9-16); Calcium 9.1 mg/dL (8.4-10.2); Carbon Dioxide 25 mmol/L (22-29); Chloride 108 mmol/L (96-108); Creatinine Clr Calc Pharmacy 63.3; Estimated Glomerular Filt Rate > 60; Glucose Random 90 mg/dL (60-115); Potassium 4.1 mmol/L (3.3-5.1); Sodium 141 mmol/L (135-145)
[2022-02-24 08:26] LABS: Troponin-I High Sensitivity < 3.5 ng/L (<3.5-35.0)
--- NOTE | 2022-02-24 11:31 | ED.GENADULT ---
HPI - General Adult General Chief complaint: General Medical <TRAVIS Chatterjee Last Filed: 02/24/22 19:48> Stated complaint: ALTURED MENTAL STATUS <TRAVIS Chatterjee Last Filed: 02/24/22 19:48> Time Seen by Provider: 02/24/22 11:17 <TRAVIS Chatterjee Last Filed: 02/24/22 19:48> Source: patient <TRAVIS Chatterjee Last Filed: 02/24/22 19:48> Mode of arrival: ambulatory <TRAVIS Chatterjee Last Filed: 02/24/22 19:48> Limitations: no limitations <TRAVIS Chatterjee Last Filed: 02/24/22 19:48> History of Present Illness HPI narrative: 66-year-old male with Parkinson's and Lewy body dementia brought to the ED due to patient not taking care of himself, not taking his Parkinson's or dementia medication and falling a day and a half ago. As per girlfriend patient being noncompliant. Patient states this morning he woke up with some tingling in his left chest that resolved on its own. Patient denies any shortness of breath, chest pain on inspiration, leg swelling, calf pain, coughing up blood, fever, recent long travel, recent surgery or chills. Patient states he had a nightmare just woke up with tingling and chest pain that resolved immediately. Patient son called the ER and stated his father should be probably paced in short-term rehab. Patient presently asymptomatic. patient admits he fell forward a day and a half ago. <TRAVIS Chatterjee Last Filed: 02/24/22 19:48> Related Data Home medications: Home Medications Medication Instructions Recorded Confirmed escitalopram oxalate 10 mg tablet 10 mg PO DAILY 10/10/20 02/24/22 escitalopram oxalate 5 mg tablet 5 mg PO BEDTIME 02/24/22 02/24/22 rotigotine 4 mg/24 hour 1 patch topical DAILY 02/24/22 02/24/22 transdermal 24 hour patch (Neupro) <TRAVIS Chatterjee Last Filed: 02/24/22 19:48> Allergies/adverse reactions: Allergies Allergy/AdvReac Type Severity Reaction Status Date / Time amoxicillin [AMOXICILLIN] Allergy Intermediate GI UPSET Verified 01/24/22 11:22 propoxyphene [From DARVON] AdvReac Intermediate GI UPSET Verified 01/24/22 11:22 rasagiline AdvReac Mild Unknown Verified 01/24/22 11:23 Darvon Allergy Unknown Gastrointestinal Uncoded 10/29/21 11:44 Upset <TRAVIS Chatterjee - Last Filed: 02/24/22 19:48> Review of Systems Review of Systems: Fell a day and half ago. Resolved chest pain. Fell onto left shoulder. <TRAVIS Chatterjee - Last Filed: 02/24/22 19:48> Yes all other systems are reviewed and are negative <TRAVIS Chatterjee - Last Filed: 02/24/22 19:48> [facility] Past Medical History Medical History: Medical History Anxiety Parkinson disease <TRAVIS Chatterjee - Last Filed: 02/24/22 19:48> Family History Family History: Family History Father Heart disease Mother Cancer <TRAVIS Chatterjee - Last Filed: 02/24/22 19:48> Social History Social History: Social History Household Members: Significant Other Housing: House Do you presently have visiting nurse or other home services: Yes ([facility] at home once a month for vitals per patient report.) Alcohol intake: never Patient Tobacco Use Status: Never used Tobacco Use of substances other than those prescribed or required for medical reasons: No Advance Directives: No Advance Directives Information Provided: Yes service: No Current occupational status: retired <TRAVIS Chatterjee - Last Filed: 02/24/22 19:48> Physical Exam ED Vital Signs: Vital Signs - 24 hr 02/24/22 11:32 02/25/22 01:00 02/25/22 04:53 Temperature 97.6 F 98.2 F Pulse Rate 70 75 84 Respiratory Rate 16 16 18 Blood Pressure 149/83 H 140/93 H 149/87 H Pulse Oximetry 96 95 98 Oxygen Delivery Method Room Air Room Air 02/25/22 10:33 02/25/22 10:34 Temperature Pulse Rate 80 80 Respiratory Rate 14 Blood Pressure 131/86 131/86 Pulse Oximetry 97 97 Oxygen Delivery Method Room Air BMI result Body Mass Index 19.6 <TRAVIS Chatterjee Last Filed: 02/24/22 19:48> Vital Signs - 24 hr 02/24/22 11:32 02/25/22 01:00 02/25/22 04:53 Temperature 97.6 F 98.2 F Pulse Rate 70 75 84 Respiratory Rate 16 16 18 Blood Pressure 149/83 H 140/93 H 149/87 H Pulse Oximetry 96 95 98 Oxygen Delivery Method Room Air Room Air 02/25/22 10:33 02/25/22 10:34 Temperature Pulse Rate 80 80 Respiratory Rate 14 Blood Pressure 131/86 131/86 Pulse Oximetry 97 97 Oxygen Delivery Method Room Air BMI result Body Mass Index 19.6 <TRAVIS Cornejo Last Filed: 02/25/22 10:50> Const General: cooperative, healthy appearing, comfortable, no acute distress, well developed, alert, awake and Physically active <TRAVIS Chatterjee Last Filed: 02/24/22 19:48> Orientation/consciousness: oriented to person, oriented to place, oriented to time and patient oriented x3 <TRAVIS Chatterjee Last Filed: 02/24/22 19:48> HENMT Head: Yes normal to inspection, Yes No palpable skull fracture present, Yes normocephalic, Yes atraumatic and No abrasion <TRAVIS Chatterjee Last Filed: 02/24/22 19:48> Ears: hearing grossly normal bilaterally, external ears normal, TM's normal bilaterally, TM normal on the right, TM normal on the left, EAC's normal, mastoids normal and no periauricular adenopathy <TRAVIS Chatterjee Last Filed: 02/24/22 19:48> Eyes General: appearance normal, both eyes and all related structures <TRAVIS Chatterjee Last Filed: 02/24/22 19:48> Neck Neck: Yes normal visual inspection, Yes full ROM, Yes no lymphadenopathy, Yes no meningeal signs, Yes trachea midline, Yes supple, No anterior neck swelling and No tender <TRAVIS Chatterjee Last Filed: 02/24/22 19:48> Chest Chest palpation & inspection: normal inspection of the chest and normal palpation of entire chest wall <Dani Jamal, PA Last Filed: 02/24/22 19:48> Resp Effort & Inspection: normal respiratory effort and able to speak in complete sentences <Dani Jamal, PA Brandon Last Filed: 02/24/22 19:48> Auscultation: clear to auscultation bilaterally <TRAVIS Chatterjee Last Filed: 02/24/22 19:48> Cardio Jugular venous distension: no JVD <TRAVIS Chatterjee Last Filed: 02/24/22 19:48> Heart sounds: S1 normal heart sound present and S2 normal heart sound present <TRAVIS Chatterjee Last Filed: 02/24/22 19:48> GI Inspection: Yes normal to inspection and No abdominal wall ecchymosis <TRAVIS Chatterjee Last Filed: 02/24/22 19:48> Palpation (GI): Soft to palpation, not firm, nontender, no guarding and not rigid <TRAVIS Chatterjee Last Filed: 02/24/22 19:48> General: No CVA tenderness and Yes no CVA tenderness <Dani Jamal, PA Last Filed: 02/24/22 19:48> Back/Spine/Pelvis Back: no CVA tenderness, No CVA tenderness and No back tenderness <Dani Jamal, PA Last Filed: 02/24/22 19:48> Skin General skin exam: no rashes or lesions noted and elasticity normal <TRAVIS Chatterjee Last Filed: 02/24/22 19:48> Neuro Other: Baseline Abnormal gait/L4 due to Parkinson's. negative facial droop. Negative slurred speech. Negative pronator drift. All extremities equal strength 5+. [id number] intact. NIH score 0 <TRAVIS Chatterjee Brandon Last Filed: 02/24/22 19:48> General: oriented to person, oriented to place, oriented to time, patient oriented x3, tone normal, no meningeal signs and CN's II-XI intact bilaterally <TRAVIS Chatterjee Last Filed: 02/24/22 19:48> Cranial nerves: Yes CN's II-XII intact bilaterally <TRAVIS Chatterjee - Last Filed: 07/03/22 19:48> Extrem Other: Lower extremities negative for swelling, pitting edema, ecchymosis, or calf tenderness. <TRAVIS Chatterjee Last Filed: 02/24/22 19:48> General: Yes normal to inspection and Yes full ROM <TRAVIS Chatterjee Last Filed: 02/24/22 19:48> Shoulder/upper arm images: 1. Positive for ecchymosis. Negative for any crepitus, and deformity, or swelling of upper extremity. Decreased range of motion due to pain. Left upper extremity neuro/vascular exam intact <TRAVIS Chatterjee Last Filed: 02/24/22 19:48> Psych Appearance: grossly normal, well kempt and not disheveled <TRAVIS Chatterjee Last Filed: 02/24/22 19:48> Course Course Course Narrative: patient will have labs including EKG and troponin. Urinalysis ordered. Shoulder and chest x-ray ordered. Patient will have COVID swab. Chest CT scan ordered to rule out any head/neck injury. Patient is at baseline mentally. If all is normal we will get Case Management due to son stating patient can no longer be at home due to girlfriend been unable to take care of him. <TRAVIS Chatterjee Last Filed: 02/24/22 19:48> Reevaluation(s) Reevaluation #1: Patient O2 sat normal and not tachycardic. Patient presently asymptomatic. Patient labs are normal. Two troponins negative. Head CT scan normal cervical spine normal. Shoulder x-ray negative for any fracture. Chest x-ray negative for any pneumonia. EKG negative STEMI. Patient came back COVID positive. Patient vaccinated with Pfizer. Not suspecting PE. Chest x-ray negative COVID pneumonia. Case Management and Physical therapy consult placed. spoke with son at bedside who states patient is at his baseline mentally. <TRAVIS Chatterjee Last Filed: 02/24/22 19:48> Reevaluation #2: physician observation continues. Patient's vital signs have been stable. Patient is COVID positive. Resting comfortably, respirations even and regular, no apparent distress. Patient has dementia and cannot be cared for at home. Awaiting physical therapy evaluation and case management disposition. Will continue to monitor <TRAVIS Cornejo - Last Filed: 02/25/22 10:50> Time: 10:49 <TRAVIS Cornejo - Last Filed: 02/25/22 10:50> Medical Decision Making MDM Narrative Medical decision making narrative: COVID. Noncompliant with dementia or Parkinson's medication <TRAVIS Chatterjee - Last Filed: 02/24/22 19:48> Lab Data Result diagrams: : 02/24/22 07:55 02/24/22 07:55 <TRAVIS Chatterjee - Last Filed: 02/24/22 19:48> Labs: Lab Results 02/24/22 02/24/22 02/24/22 Range/Units 07:55 07:55 07:55 WBC 6.8 (4.8-10.8) X10*3/uL RBC 5.05 (4.60-5.80) X10*6/uL Hgb 16.2 (14.0-18.0) g/dl Hct 47.7 (42.0-52.0) % MCV 94.5 (80.0-98.0) fL MCH 32.1 (27.0-33.0) pg MCHC 34.0 (31.0-36.0) g/dl RDW 13.2 (11.0-16.0) % Plt Count 192 (160-400) X10*3/uL MPV 9.2 L (9.4-12.4) fL Immature Gran % (Auto) 0.4 (0.0-0.4) % Neut % (Auto) 65.8 (45-73) % Lymph % (Auto) 23.9 (20-40) % [place] % (Auto) 8.4 (2-11) % Eos % (Auto) 1.2 (0-4) % Baso % (Auto) 0.3 (0-2) % Lymph # (Auto) 1.6 (1.2-4.9) X10*3/uL [place] # (Auto) 0.6 (0.1-1.2) X10*3/uL Eos # (Auto) 0.1 (0.0-0.4) X10*3/uL Baso # (Auto) 0.0 (0.0-0.2) X10*3/uL Abs Immat Gran (auto) 0.03 (0.00-0.03) X10*3/uL Absolute Neuts (auto) 4.5 (2.0-8.3) x10*3/uL Absolute Nucleated RBC 0.000 (0.0-0.012) X10*3/uL Nucleated RBC % (auto) 0.0 (0.0-0.2) /100WBC PT (10.0-13.1) SEC INR (0.9-1.1) APTT (24.1-38.0) SEC Sodium 141 (135-145) mmol/L Potassium 4.1 (3.3-5.1) mmol/L Chloride 108 (96-108) mmol/L Carbon Dioxide 25 (22-29) mmol/L Anion Gap 12 (12-20) BUN 16 (9-16) mg/dL Creatinine 0.98 (0.5-1.4) mg/dL Estim Creat Clear Calc 63.3 Estimated GFR > 60 Random Glucose 90 D (60-115) mg/dL Calcium 9.1 (8.4-10.2) mg/dL Troponin I High Sens < 3.5 (<3.5-35.0) ng/L B-Natriuretic Peptide (<100) pg/mL Urine Color Urine Appearance Urine pH (5.0-8.0) Ur Specific [place] (1.005-1.025) Urine Protein (NEG-TRACE) MG/DL Urine Glucose (UA) (NEG) MG/DL Urine Ketones (NEG) MG/DL Urine Blood (NEG) Urine Nitrite (NEG) Ur Leukocyte Esterase (NEG) COVID-19 (ARCHIE) (Negative) COVID-19 Clin Com 02/24/22 02/24/22 02/24/22 Range/Units 11:44 11:44 11:44 WBC (4.8-10.8) X10*3/uL RBC (4.60-5.80) X10*6/uL Hgb (14.0-18.0) g/dl Hct (42.0-52.0) % MCV (80.0-98.0) fL MCH (27.0-33.0) pg MCHC (31.0-36.0) g/dl RDW (11.0-16.0) % Plt Count (160-400) X10*3/uL MPV (9.4-12.4) fL Immature Gran % (Auto) (0.0-0.4) % Neut % (Auto) (45-73) % Lymph % (Auto) (20-40) % [place] % (Auto) (2-11) % Eos % (Auto) (0-4) % Baso % (Auto) (0-2) % Lymph # (Auto) (1.2-4.9) X10*3/uL [place] # (Auto) (0.1-1.2) X10*3/uL Eos # (Auto) (0.0-0.4) X10*3/uL Baso # (Auto) (0.0-0.2) X10*3/uL Abs Immat Gran (auto) (0.00-0.03) X10*3/uL Absolute Neuts (auto) (2.0-8.3) x10*3/uL Absolute Nucleated RBC (0.0-0.012) X10*3/uL Nucleated RBC % (auto) (0.0-0.2) /100WBC PT 12.2 (10.0-13.1) SEC INR 1.1 (0.9-1.1) APTT 32.2 D (24.1-38.0) SEC Sodium (135-145) mmol/L Potassium (3.3-5.1) mmol/L Chloride (96-108) mmol/L Carbon Dioxide (22-29) mmol/L Anion Gap (12-20) BUN (9-16) mg/dL Creatinine (0.5-1.4) mg/dL Estim Creat Clear Calc Estimated GFR Random Glucose (60-115) mg/dL Calcium (8.4-10.2) mg/dL Troponin I High Sens < 3.5 (<3.5-35.0) ng/L B-Natriuretic Peptide < 10 (<100) pg/mL Urine Color YELLOW Urine Appearance CLEAR Urine pH 5.5 (5.0-8.0) Ur Specific [place] 1.025 (1.005-1.025) Urine Protein NEG (NEG-TRACE) MG/DL Urine Glucose (UA) NEG (NEG) MG/DL Urine Ketones 5 (NEG) MG/DL Urine Blood NEG (NEG) Urine Nitrite NEG (NEG) Ur Leukocyte Esterase NEG (NEG) COVID-19 (ARCHIE) (Negative) COVID-19 Clin Com 02/24/22 Range/Units 12:36 WBC (4.8-10.8) X10*3/uL RBC (4.60-5.80) X10*6/uL Hgb (14.0-18.0) g/dl Hct (42.0-52.0) % MCV (80.0-98.0) fL MCH (27.0-33.0) pg MCHC (31.0-36.0) g/dl RDW (11.0-16.0) % Plt Count (160-400) X10*3/uL MPV (9.4-12.4) fL Immature Gran % (Auto) (0.0-0.4) % Neut % (Auto) (45-73) % Lymph % (Auto) (20-40) % [place] % (Auto) (2-11) % Eos % (Auto) (0-4) % Baso % (Auto) (0-2) % Lymph # (Auto) (1.2-4.9) X10*3/uL [place] # (Auto) (0.1-1.2) X10*3/uL Eos # (Auto) (0.0-0.4) X10*3/uL Baso # (Auto) (0.0-0.2) X10*3/uL Abs Immat Gran (auto) (0.00-0.03) X10*3/uL Absolute Neuts (auto) (2.0-8.3) x10*3/uL Absolute Nucleated RBC (0.0-0.012) X10*3/uL Nucleated RBC % (auto) (0.0-0.2) /100WBC PT (10.0-13.1) SEC INR (0.9-1.1) APTT (24.1-38.0) SEC Sodium (135-145) mmol/L Potassium (3.3-5.1) mmol/L Chloride (96-108) mmol/L Carbon Dioxide (22-29) mmol/L Anion Gap (12-20) BUN (9-16) mg/dL Creatinine (0.5-1.4) mg/dL Estim Creat Clear Calc Estimated GFR Random Glucose (60-115) mg/dL Calcium (8.4-10.2) mg/dL Troponin I High Sens (<3.5-35.0) ng/L B-Natriuretic Peptide (<100) pg/mL Urine Color Urine Appearance Urine pH (5.0-8.0) Ur Specific [place] (1.005-1.025) Urine Protein (NEG-TRACE) MG/DL Urine Glucose (UA) (NEG) MG/DL Urine Ketones (NEG) MG/DL Urine Blood (NEG) Urine Nitrite (NEG) Ur Leukocyte Esterase (NEG) COVID-19 (ARCHIE) Positive A (Negative) COVID-19 Clin Com See Note <TRAVIS Chatterjee - Last Filed: 02/24/22 19:48> Lab Results 02/24/22 02/24/22 02/24/22 Range/Units 07:55 07:55 07:55 WBC 6.8 (4.8-10.8) X10*3/uL RBC 5.05 (4.60-5.80) X10*6/uL Hgb 16.2 (14.0-18.0) g/dl Hct 47.7 (42.0-52.0) % MCV 94.5 (80.0-98.0) fL MCH 32.1 (27.0-33.0) pg MCHC 34.0 (31.0-36.0) g/dl RDW 13.2 (11.0-16.0) % Plt Count 192 (160-400) X10*3/uL MPV 9.2 L (9.4-12.4) fL Immature Gran % (Auto) 0.4 (0.0-0.4) % Neut % (Auto) 65.8 (45-73) % Lymph % (Auto) 23.9 (20-40) % [place] % (Auto) 8.4 (2-11) % Eos % (Auto) 1.2 (0-4) % Baso % (Auto) 0.3 (0-2) % Lymph # (Auto) 1.6 (1.2-4.9) X10*3/uL [place] # (Auto) 0.6 (0.1-1.2) X10*3/uL Eos # (Auto) 0.1 (0.0-0.4) X10*3/uL Baso # (Auto) 0.0 (0.0-0.2) X10*3/uL Abs Immat Gran (auto) 0.03 (0.00-0.03) X10*3/uL Absolute Neuts (auto) 4.5 (2.0-8.3) x10*3/uL Absolute Nucleated RBC 0.000 (0.0-0.012) X10*3/uL Nucleated RBC % (auto) 0.0 (0.0-0.2) /100WBC PT (10.0-13.1) SEC INR (0.9-1.1) APTT (24.1-38.0) SEC Sodium 141 (135-145) mmol/L Potassium 4.1 (3.3-5.1) mmol/L Chloride 108 (96-108) mmol/L Carbon Dioxide 25 (22-29) mmol/L Anion Gap 12 (12-20) BUN 16 (9-16) mg/dL Creatinine 0.98 (0.5-1.4) mg/dL Estim Creat Clear Calc 63.3 Estimated GFR > 60 Random Glucose 90 D (60-115) mg/dL Calcium 9.1 (8.4-10.2) mg/dL Troponin I High Sens < 3.5 (<3.5-35.0) ng/L B-Natriuretic Peptide (<100) pg/mL Urine Color Urine Appearance Urine pH (5.0-8.0) Ur Specific [place] (1.005-1.025) Urine Protein (NEG-TRACE) MG/DL Urine Glucose (UA) (NEG) MG/DL Urine Ketones (NEG) MG/DL Urine Blood (NEG) Urine Nitrite (NEG) Ur Leukocyte Esterase (NEG) COVID-19 (ARCHIE) (Negative) COVID-19 Clin Com 02/24/22 02/24/22 02/24/22 Range/Units 11:44 11:44 11:44 WBC (4.8-10.8) X10*3/uL RBC (4.60-5.80) X10*6/uL Hgb (14.0-18.0) g/dl Hct (42.0-52.0) % MCV (80.0-98.0) fL MCH (27.0-33.0) pg MCHC (31.0-36.0) g/dl RDW (11.0-16.0) % Plt Count (160-400) X10*3/uL MPV (9.4-12.4) fL Immature Gran % (Auto) (0.0-0.4) % Neut % (Auto) (45-73) % Lymph % (Auto) (20-40) % [place] % (Auto) (2-11) % Eos % (Auto) (0-4) % Baso % (Auto) (0-2) % Lymph # (Auto) (1.2-4.9) X10*3/uL [place] # (Auto) (0.1-1.2) X10*3/uL Eos # (Auto) (0.0-0.4) X10*3/uL Baso # (Auto) (0.0-0.2) X10*3/uL Abs Immat Gran (auto) (0.00-0.03) X10*3/uL Absolute Neuts (auto) (2.0-8.3) x10*3/uL Absolute Nucleated RBC (0.0-0.012) X10*3/uL Nucleated RBC % (auto) (0.0-0.2) /100WBC PT 12.2 (10.0-13.1) SEC INR 1.1 (0.9-1.1) APTT 32.2 D (24.1-38.0) SEC Sodium (135-145) mmol/L Potassium (3.3-5.1) mmol/L Chloride (96-108) mmol/L Carbon Dioxide (22-29) mmol/L Anion Gap (12-20) BUN (9-16) mg/dL Creatinine (0.5-1.4) mg/dL Estim Creat Clear Calc Estimated GFR Random Glucose (60-115) mg/dL Calcium (8.4-10.2) mg/dL Troponin I High Sens < 3.5 (<3.5-35.0) ng/L B-Natriuretic Peptide < 10 (<100) pg/mL Urine Color YELLOW Urine Appearance CLEAR Urine pH 5.5 (5.0-8.0) Ur Specific [place] 1.025 (1.005-1.025) Urine Protein NEG (NEG-TRACE) MG/DL Urine Glucose (UA) NEG (NEG) MG/DL Urine Ketones 5 (NEG) MG/DL Urine Blood NEG (NEG) Urine Nitrite NEG (NEG) Ur Leukocyte Esterase NEG (NEG) COVID-19 (ARCHIE) (Negative) COVID-19 Clin Com 02/24/22 Range/Units 12:36 WBC (4.8-10.8) X10*3/uL RBC (4.60-5.80) X10*6/uL Hgb (14.0-18.0) g/dl Hct (42.0-52.0) % MCV (80.0-98.0) fL MCH (27.0-33.0) pg MCHC (31.0-36.0) g/dl RDW (11.0-16.0) % Plt Count (160-400) X10*3/uL MPV (9.4-12.4) fL Immature Gran % (Auto) (0.0-0.4) % Neut % (Auto) (45-73) % Lymph % (Auto) (20-40) % [place] % (Auto) (2-11) % Eos % (Auto) (0-4) % Baso % (Auto) (0-2) % Lymph # (Auto) (1.2-4.9) X10*3/uL [place] # (Auto) (0.1-1.2) X10*3/uL Eos # (Auto) (0.0-0.4) X10*3/uL Baso # (Auto) (0.0-0.2) X10*3/uL Abs Immat Gran (auto) (0.00-0.03) X10*3/uL Absolute Neuts (auto) (2.0-8.3) x10*3/uL Absolute Nucleated RBC (0.0-0.012) X10*3/uL Nucleated RBC % (auto) (0.0-0.2) /100WBC PT (10.0-13.1) SEC INR (0.9-1.1) APTT (24.1-38.0) SEC Sodium (135-145) mmol/L Potassium (3.3-5.1) mmol/L Chloride (96-108) mmol/L Carbon Dioxide (22-29) mmol/L Anion Gap (12-20) BUN (9-16) mg/dL Creatinine (0.5-1.4) mg/dL Estim Creat Clear Calc Estimated GFR Random Glucose (60-115) mg/dL Calcium (8.4-10.2) mg/dL Troponin I High Sens (<3.5-35.0) ng/L B-Natriuretic Peptide (<100) pg/mL Urine Color Urine Appearance Urine pH (5.0-8.0) Ur Specific [place] (1.005-1.025) Urine Protein (NEG-TRACE) MG/DL Urine Glucose (UA) (NEG) MG/DL Urine Ketones (NEG) MG/DL Urine Blood (NEG) Urine Nitrite (NEG) Ur Leukocyte Esterase (NEG) COVID-19 (ARCHIE) Positive A (Negative) COVID-19 Clin Com See Note <TRAVIS Cornejo - Last Filed: 02/25/22 10:50> ECG Data Interpretation: normal sinus rhythm. Ventricular rate 66. Pr interval 146. QRS 96. QTC 423. Negative STEMI <TRAVIS Chatterjee Last Filed: 02/24/22 19:48> Discharge Plan Discharge Clinical Impression: COVID-19, Dementia <TRAVIS Chatterjee Last Filed: 02/24/22 19:48> Patient Disposition: Still a Patient <TRAVIS Chatterjee Last Filed: 02/24/22 19:48> Instructions: Dementia (ED), COVID-19 (Coronavirus Disease 2019) (ED) <TRAVIS Chatterjee Last Filed: 02/24/22 19:48> Prescriptions: No Action Neupro 4 mg/24 hour patch 24 hour 1 patch topical DAILY escitalopram oxalate 5 mg tablet 5 mg PO BEDTIME Rx Instructions: take w/ 10mg tab to total 15mg qd. escitalopram oxalate 10 mg tablet 10 mg PO DAILY <TRAVIS Chatterjee Last Filed: 02/24/22 19:48>
[2022-02-24 11:32] VITALS: BP 149/83; PULSE 70; RESP 16; O2SAT 96
[2022-02-24 11:54] LABS: Appearance Urine CLEAR; Color Urine YELLOW; Glucose Urine UA NEG (NEG); Leukocyte Esterase Urine NEG (NEG); Nitrite Urine NEG (NEG); PH 5.5 (5.0-8.0); Specific Gravity - Urine 1.025 (1.005-1.025); Urine Blood NEG (NEG); Urine Ketones 5 MG/DL (NEG); Urine Protein NEG (NEG-TRACE)
[2022-02-24 12:09] LABS: B Type Natriuretic Peptide < 10 pg/mL (<100); Troponin-I High Sensitivity < 3.5 ng/L (<3.5-35.0)
[2022-02-24 12:12] LABS: INTERNATIONAL NORM RATIO 1.1 (0.9-1.1); Prothrombin Time 12.2 SEC (10.0-13.1)
[2022-02-24 12:15] LABS: Partial Thromboplastin Time 32.2 SEC (24.1-38.0)
[2022-02-24 12:55] LABS: COVID-19 Test Positive (Negative)
--- NOTE | 2022-02-24 15:18 | PHA.MEDREC ---
Pharmacy Consult ? Medication Reconciliation Pharmacy has completed the medication reconciliation.
--- NOTE | 2022-02-24 16:14 | MHC.CM.PN ---
Male 66 s/p fall A PT eval is pending. Dispo is depending on whether or not the patient qualifies for STR. CM will follow for PT eval.
[2022-02-25 01:00] VITALS: BP 140/93; PULSE 75; RESP 16; TEMP 36.4; O2SAT 95
[2022-02-25 04:53] VITALS: BP 149/87; PULSE 84; RESP 18; TEMP 36.8; O2SAT 98
[2022-02-25 10:33] VITALS: BP 131/86; PULSE 80; O2SAT 97
[2022-02-25 10:34] VITALS: BP 131/86; PULSE 80; RESP 14; O2SAT 97
[2022-02-25 17:51] VITALS: BP 143/87; PULSE 91; RESP 17; TEMP 36.7; O2SAT 94
[2022-02-25] MEDS: Escitalopram Oxalate 5 MG TABLET PO (22:31)
[2022-02-26] VITALS (7 sets, daily range): BP systolic 138–148; BP diastolic 79–88; PULSE 90–104; RESP 16–18; TEMP 36.5–37.2; O2SAT 95–96
--- NOTE | 2022-02-26 05:50 | PC.NURSE ---
I assumed nursing care of Sd at 1900. sd is remaining in he ED under physician observation, covid positive. Sd has been resting in bed, mostly awake throughout the shift. He makes eye contact with staff, is extremely soft spoken and slow to respon verbally but is verbally appropriate. Respirations are non-labored, RR WNL, room air sat's WNL. Sd is not indicating that he is experiencing pain. He has been taking PO food and fluids independently. We will continue to monitor Sd.
[2022-02-26] MEDS: Escitalopram Oxalate 10 MG TABLET PO (10:10)
--- NOTE | 2022-02-26 15:07 | MHC.CM.ED ---
Patient remains in ER. Positive for Covid 02/24. Patient is from home with his sig other. Patient has been falling at home. Physical therapy eval completed. Short term rehab is recommended. Because patient is positive for Covid, placement will be difficuilt to find. Referral broadcasted in [facility]. [facility] is willing to offer a bed. Patient's son/HCP, Jesus aware. Jesus agreeable to transfer on 02/27 at 10am. Patient, Saray Lee RN and Ava ROBLES aware. Continue to monitor for d/c needs.
--- NOTE | 2022-02-26 16:20 | HE.PHANOTE ---
PT OWN MED PT own medication Neupro patch was passed off to JHON Santiago once pharmacy label was generated.
--- NOTE | 2022-02-26 16:28 | PHA.MEDREC ---
Pharmacy Consult ? Medication Reconciliation Pharmacy has completed the medication reconciliation. Patient did not feel up to it to talk about his medications, I consulted his instead. She takes care of all his medications. List was confirmed with her. The Nuplazid and Tamsulosin were added to the list. His says he should be taking them but sometimes gives her a hard time. She could not recall the last time shes given them but does confirm that she tries as much as possible.
[2022-02-27] VITALS: BP 133/100; PULSE 106; RESP 16; TEMP 36.7; O2SAT 96
[2022-02-27 04:00] VITALS: BP 130/70; PULSE 90; RESP 16; TEMP 36.7; O2SAT 96
[2022-02-27 07:01] VITALS: BP 135/78; PULSE 88; RESP 14; TEMP 36.6; O2SAT 95
[2022-02-27 09:36] VITALS: BP 156/89; PULSE 88; RESP 16; TEMP 36.4; O2SAT 97
--- NOTE | 2022-02-27 09:37 | PC.NURSE ---
attemptted to give rn to rn report left a message on voice mail
--- NOTE | 2022-02-27 09:37 | MHC.CM.ED ---
Patient remains in ER. Will transfer to [facility] via BLS at 10am. Continue to monitor for d/c needs.
--- NOTE | 2022-02-27 09:45 | PC.NURSE ---
pt's son at bedside, pt refused meds given by this rn earlier, pt given own med (lexapro 10mg po) by son and took it po. pt/son aware of plan of care for transfer to [facility], facility in [place], [place].
--- NOTE | 2022-02-27 10:26 | PC.NURSE ---
4th attempt rn to rn given to maddie (rn).
== END 2022-02-27 10:26 | disposition skilled nursing facility (03) ==
PROVIDERS: Physician Assistant; Emergency Provider Emergency Medicine Emergency Medical Services; PCP Family Medicine
DX: U07.1 COVID-19 (principal); F03.91 Unspecified dementia, unspecified severity, with behavioral disturbance; M25.512 Pain in left shoulder; M54.2 Cervicalgia; R51.9 Headache, unspecified; R06.02 Shortness of breath; R26.81 Unsteadiness on feet; R07.89 Other chest pain; Z91.14 Patient's other noncompliance with medication regimen; Z79.899 Other long term (current) drug therapy
CPT/HCPCS: 36415; 70450; 71045; 72125; 73030; 80048; 81003; 83880; 84484; 85025; 85610; 85730; 87635; 93005; 97162; 99284; 99285